=== PATIENT | female | born 1955 | race Caucasian/White ===

== ENCOUNTER → 2017-08-07 15:29 | Outpatient (REF) | payer MEDICARE, SELFPAY ==
[2017-08-07 20:15] LABS: Amphetamine/Metha Screen,Urine Negative ng/mL (<1000); Barbiturates Screen,Urine Negative ng/mL (<200); Benzodiazepines Screen,Urine Negative ng/mL (200); Cannabinoid Screen,Urine Positive ng/mL (<50); Cocaine Screen,Urine Negative ng/g (<300); Methadone Screen,Urine Negative ng/mL (<300); Opiate Screen,Urine Negative ng/mL (<300); Phencyclidine Screen,Urine Negative ng/mL (<25)
== END ==
LOC: LAB 15:29
PROVIDERS: Visit Provider Emergency Medicine
DX: Z79.899 Other long term (current) drug therapy (principal)
CPT/HCPCS: 80305

== ENCOUNTER → 2017-09-04 15:47 | Outpatient (CLI) | payer MEDICARE, SELFPAY | PROVIDERS: Visit Provider Emergency Medicine | DX: Z79.899 Other long term (current) drug therapy (principal) ==

== ENCOUNTER → 2017-10-01 08:17 | Outpatient (REF) | payer MEDICARE, SELFPAY ==
[2017-10-11 05:16] LABS: Alprazolam Negative (Cutoff=100); Benzodiazepines Positive ng/mL (Cutoff=100); Clonazepam Negative (Cutoff=100); Flurazepam Negative (Cutoff=100); Lorazepam Negative (Cutoff=100); Midazolam Negative (Cutoff=100); Temazepam Positive (.); Triazolam Negative (Cutoff=100)
== END ==
LOC: LAB 08:17
PROVIDERS: Visit Provider Emergency Medicine
DX: Z79.899 Other long term (current) drug therapy (principal)
CPT/HCPCS: 80346

== ENCOUNTER → 2017-10-01 15:11 | Outpatient (REF) | payer MEDICARE, SELFPAY ==
[2017-10-01 18:16] LABS: Amphetamine/Metha Screen,Urine Negative ng/mL (<1000); Barbiturates Screen,Urine Negative ng/mL (<200); Benzodiazepines Screen,Urine Positive ng/mL (200); Cannabinoid Screen,Urine Positive ng/mL (<50); Cocaine Screen,Urine Negative ng/g (<300); Methadone Screen,Urine Negative ng/mL (<300); Opiate Screen,Urine Positive ng/mL (<300); Phencyclidine Screen,Urine Negative ng/mL (<25)
== END ==
LOC: LAB 15:11
PROVIDERS: Visit Provider Emergency Medicine
DX: Z79.899 Other long term (current) drug therapy (principal)
CPT/HCPCS: 80305

== ENCOUNTER → 2017-11-04 15:22 | Outpatient (REF) | payer MEDICARE, SELFPAY ==
[2017-11-04 21:53] LABS: Amphetamine/Metha Screen,Urine Negative ng/mL (<1000); Barbiturates Screen,Urine Negative ng/mL (<200); Benzodiazepines Screen,Urine Positive ng/mL (200); Cannabinoid Screen,Urine Positive ng/mL (<50); Cocaine Screen,Urine Negative ng/g (<300); Methadone Screen,Urine Negative ng/mL (<300); Opiate Screen,Urine Positive ng/mL (<300); Phencyclidine Screen,Urine Negative ng/mL (<25)
== END ==
LOC: LAB 15:22
PROVIDERS: Visit Provider Emergency Medicine
DX: Z79.899 Other long term (current) drug therapy (principal)
CPT/HCPCS: 80305

== ENCOUNTER → 2017-12-02 14:57 | Outpatient (REF) | payer MEDICARE, SELFPAY ==
[2017-12-02 17:31] LABS: Amphetamine/Metha Screen,Urine Negative ng/mL (<1000); Barbiturates Screen,Urine Negative ng/mL (<200); Benzodiazepines Screen,Urine Positive ng/mL (<200); Cannabinoid Screen,Urine Positive ng/mL (<50); Cocaine Screen,Urine Negative ng/mL (<300); Methadone Screen,Urine Negative ng/mL (<300); Opiate Screen,Urine Positive ng/mL (<300); Phencyclidine Screen,Urine Negative ng/mL (<25)
== END ==
LOC: LAB 14:57
PROVIDERS: Visit Provider Emergency Medicine
DX: M54.5 Low back pain (principal); Z79.899 Other long term (current) drug therapy
CPT/HCPCS: 80305

== ENCOUNTER → 2017-12-19 09:54 | Outpatient (CLI) | payer MEDICARE, SELFPAY ==
--- NOTE | 2017-12-19 09:57 | XR_ITS ---
XR chest 2V HISTORY: ITS.REASON: shortness of breath ORDERING PHYSICIAN: Edwardo Bach MD PATIENT AGE: 62 years COMPARISON: None available FINDINGS: The cardiomediastinal silhouette and pulmonary vascularity are within normal limits. The lungs are clear without infiltrates, suspicious nodules, or pleural effusions. No acute bony abnormalities. IMPRESSION: Negative chest, no acute finding
[2017-12-19 10:40] VITALS: PULSE 88; PULSE 91
== END ==
PROVIDERS: Family Provider Family Medicine; PCP Emergency Medicine; Visit Provider Emergency Medicine
DX: R06.02 Shortness of breath (principal)
CPT/HCPCS: 71046; 94060; 94640

== ENCOUNTER → 2017-12-23 13:49 | Outpatient (REF) | payer MEDICARE, SELFPAY ==
[2017-12-23 17:39] LABS: Amphetamine/Metha Screen,Urine Negative ng/mL (<1000); Barbiturates Screen,Urine Negative ng/mL (<200); Benzodiazepines Screen,Urine Positive ng/mL (<200); Cannabinoid Screen,Urine Positive ng/mL (<50); Cocaine Screen,Urine Negative ng/mL (<300); Methadone Screen,Urine Negative ng/mL (<300); Opiate Screen,Urine Negative ng/mL (<300); Phencyclidine Screen,Urine Negative ng/mL (<25)
== END ==
LOC: LAB 13:49
PROVIDERS: Visit Provider Emergency Medicine
DX: Z79.899 Other long term (current) drug therapy (principal)
CPT/HCPCS: 80305

== ENCOUNTER → 2018-01-22 13:35 | Outpatient (REF) | payer MEDICARE, SELFPAY ==
[2018-01-22 19:33] LABS: Amphetamine/Metha Screen,Urine Negative ng/mL (<1000); Barbiturates Screen,Urine Negative ng/mL (<200); Benzodiazepines Screen,Urine Positive ng/mL (<200); Cannabinoid Screen,Urine Positive ng/mL (<50); Cocaine Screen,Urine Negative ng/mL (<300); Methadone Screen,Urine Negative ng/mL (<300); Opiate Screen,Urine Positive ng/mL (<300); Phencyclidine Screen,Urine Negative ng/mL (<25)
== END ==
LOC: LAB 13:35
PROVIDERS: Visit Provider Emergency Medicine
DX: Z79.899 Other long term (current) drug therapy (principal)
CPT/HCPCS: 80305

== ENCOUNTER → 2018-02-19 15:39 | Outpatient (REF) | payer MEDICARE, SELFPAY ==
[2018-02-19 18:11] LABS: Amphetamine/Metha Screen,Urine Negative ng/mL (<1000); Barbiturates Screen,Urine Negative ng/mL (<200); Benzodiazepines Screen,Urine Positive ng/mL (<200); Cannabinoid Screen,Urine Positive ng/mL (<50); Cocaine Screen,Urine Negative ng/mL (<300); Methadone Screen,Urine Negative ng/mL (<300); Opiate Screen,Urine Positive ng/mL (<300); Phencyclidine Screen,Urine Negative ng/mL (<25)
== END ==
LOC: LAB 15:39
PROVIDERS: Visit Provider Emergency Medicine
DX: Z79.899 Other long term (current) drug therapy (principal)
CPT/HCPCS: 80305

== ENCOUNTER → 2018-03-18 15:22 | Outpatient (REF) | payer MEDICARE, SELFPAY ==
[2018-03-19 09:57] LABS: Amphetamine/Metha Screen,Urine Negative ng/mL (<1000); Barbiturates Screen,Urine Negative ng/mL (<200); Benzodiazepines Screen,Urine Positive ng/mL (<200); Cannabinoid Screen,Urine Positive ng/mL (<50); Cocaine Screen,Urine Negative ng/mL (<300); Methadone Screen,Urine Negative ng/mL (<300); Opiate Screen,Urine Positive ng/mL (<300); Phencyclidine Screen,Urine Negative ng/mL (<25)
== END ==
LOC: LAB 15:22
PROVIDERS: Visit Provider Emergency Medicine
DX: M54.2 Cervicalgia (principal)
CPT/HCPCS: 80305

== ENCOUNTER → 2018-04-18 17:56 | Outpatient (CLI) | payer MEDICARE, SELFPAY ==
[2018-04-18 19:34] LABS: Amphetamine/Metha Screen,Urine Negative ng/mL (<1000); Barbiturates Screen,Urine Negative ng/mL (<200); Benzodiazepines Screen,Urine Positive ng/mL (<200); Cannabinoid Screen,Urine Positive ng/mL (<50); Cocaine Screen,Urine Negative ng/mL (<300); Methadone Screen,Urine Negative ng/mL (<300); Opiate Screen,Urine Positive ng/mL (<300); Phencyclidine Screen,Urine Negative ng/mL (<25)
== END ==
PROVIDERS: Visit Provider Emergency Medicine
DX: Z79.899 Other long term (current) drug therapy (principal)
CPT/HCPCS: 80305

== ENCOUNTER → 2018-05-19 18:56 | Outpatient (CLI) | payer MEDICARE, SELFPAY ==
[2018-05-19 19:27] LABS: Amphetamine/Metha Screen,Urine Negative ng/mL (<1000); Barbiturates Screen,Urine Negative ng/mL (<200); Benzodiazepines Screen,Urine Positive ng/mL (<200); Cannabinoid Screen,Urine Positive ng/mL (<50); Cocaine Screen,Urine Negative ng/mL (<300); Methadone Screen,Urine Negative ng/mL (<300); Opiate Screen,Urine Negative ng/mL (<300); Phencyclidine Screen,Urine Negative ng/mL (<25)
[2018-05-26 14:12] LABS: Opiates Negative (Cutoff=100); Oxymorphone (GC/MS) 857 ng/mL (Cutoff=100)
== END ==
PROVIDERS: Visit Provider Emergency Medicine
DX: Z79.899 Other long term (current) drug therapy (principal)
CPT/HCPCS: 80305; 80361; 80365; G0480

== ENCOUNTER → 2018-06-18 18:26 | Outpatient (CLI) | payer MEDICARE, SELFPAY ==
[2018-06-18 20:28] LABS: Amphetamine/Metha Screen,Urine Negative ng/mL (<1000); Barbiturates Screen,Urine Negative ng/mL (<200); Benzodiazepines Screen,Urine Positive ng/mL (<200); Cannabinoid Screen,Urine Positive ng/mL (<50); Cocaine Screen,Urine Negative ng/mL (<300); Methadone Screen,Urine Negative ng/mL (<300); Opiate Screen,Urine Positive ng/mL (<300); Phencyclidine Screen,Urine Negative ng/mL (<25)
[2018-06-23 15:15] LABS: Alprazolam Negative (Cutoff=100); Benzodiazepines Positive ng/mL (Cutoff=100); Clonazepam Positive (.); Flurazepam Negative (Cutoff=100); Lorazepam Negative (Cutoff=100); Midazolam Negative (Cutoff=100); Temazepam Positive (.); Triazolam Negative (Cutoff=100)
[2018-06-24 06:40] LABS: Clonazepam Confirm 1401 ng/mL (Cutoff=100)
== END ==
PROVIDERS: Visit Provider Emergency Medicine
DX: Z79.899 Other long term (current) drug therapy (principal)
CPT/HCPCS: 80305; 80346

== ENCOUNTER → 2018-08-13 17:07 | Outpatient (CLI) | payer MEDICARE, SELFPAY ==
[2018-08-13 18:29] LABS: Amphetamine/Metha Screen,Urine Negative ng/mL (<1000); Barbiturates Screen,Urine Negative ng/mL (<200); Benzodiazepines Screen,Urine Positive ng/mL (<200); Cannabinoid Screen,Urine Positive ng/mL (<50); Cocaine Screen,Urine Negative ng/mL (<300); Methadone Screen,Urine Negative ng/mL (<300); Opiate Screen,Urine Positive ng/mL (<300); Phencyclidine Screen,Urine Negative ng/mL (<25)
== END ==
PROVIDERS: Visit Provider Emergency Medicine
DX: M54.2 Cervicalgia (principal)
CPT/HCPCS: 80305

== ENCOUNTER → 2018-10-08 17:27 | Outpatient (CLI) | payer MEDICARE, SELFPAY ==
[2018-10-08 18:47] LABS: Amphetamine/Metha Screen,Urine Negative ng/mL (<1000); Barbiturates Screen,Urine Negative ng/mL (<200); Benzodiazepines Screen,Urine Positive ng/mL (<200); Cannabinoid Screen,Urine Positive ng/mL (<50); Cocaine Screen,Urine Negative ng/mL (<300); Methadone Screen,Urine Negative ng/mL (<300); Opiate Screen,Urine Positive ng/mL (<300); Phencyclidine Screen,Urine Negative ng/mL (<25)
== END ==
PROVIDERS: Visit Provider Emergency Medicine
DX: M54.2 Cervicalgia (principal)
CPT/HCPCS: 80305

== ENCOUNTER → 2018-12-05 17:32 | Outpatient (CLI) | payer MEDICARE, SELFPAY ==
[2018-12-05 19:09] LABS: Basophils # 0.1 K/mm3 (0-0.2); Basophils % 1.3 % (0.1-2.0); Eosinophils # 0.4 K/mm3 (0.0-0.4); Eosinophils % 3.5 % (0.1-12.0); Hematocrit 44.4 % (37.0-47.0); Hemoglobin 13.8 g/dL (12.2-16.2); Lymphocytes # 3.3 K/mm3 (0.7-4.5); Mean Corpuscular HGB Conc 31.1 g/dL (31.8-35.4); Mean Corpuscular Hemoglobin 30.9 pg (27.0-31.2); Mean Corpuscular Volume 99.3 fl (81-99); Mean Platelet Volume 8.9 fl (7.4-10.4); Monocytes # 0.6 K/mm3 (0.1-1.0); Monocytes % 5.5 % (1.7-9.3); Neutrophils % 57.7 % (37.0-80.0); Platelet Count 579 K/mm3 (142-424); Red Blood Count 4.47 M/mm3 (4.20-5.40); Red Cell Distribution Width 13.9 % (11.5-17.5); White Blood Count 10.4 K/mm3 (4.8-10.8)
[2018-12-05 19:36] LABS: Alanine Aminotransferase 18 U/L (12-78); Albumin Level 3.6 gm/dL (3.4-5.0); Albumin/Globulin Ratio 1.1 (1.1-1.8); Alkaline Phosphatase 132 U/L (46-116); Anion Gap 13.7 mEq/L (5-15); Aspartate Amino Transferase 15 U/L (15-37); Bilirubin,Total 0.2 mg/dL (0.2-1.0); Blood Urea Nitrogen 1 mg/dL (7-18); Calcium 9.2 mg/dL (8.5-10.1); Carbon Dioxide 24 mmol/L (21.0-32.0); Chloride 103 mmol/L (98-107); Creatinine,Serum 1.72 mg/dL (0.55-1.02); Estimated Glomerular Filt Rate 30 ml/min (>60); Free T4 (Free Thyroxine) 0.79 ng/dl (0.76-1.46); GFR (African American) 36 ML/MIN (>60); Globulin 3.4 gm/dl (1.3-3.2); Glucose 82 mg/dL (74-106); Potassium 4.7 mmoL/L (3.5-5.1); Sodium 136 mmol/L (136-145)
[2018-12-05 19:49] LABS: Erythrocyte Sedimentation Rate 49 mm/hr (0-30)
[2018-12-05 20:32] LABS: Amphetamine/Metha Screen,Urine Negative ng/mL (<1000); Barbiturates Screen,Urine Negative ng/mL (<200); Benzodiazepines Screen,Urine Positive ng/mL (<200); Cannabinoid Screen,Urine Positive ng/mL (<50); Cocaine Screen,Urine Negative ng/mL (<300); Methadone Screen,Urine Negative ng/mL (<300); Opiate Screen,Urine Negative ng/mL (<300); Phencyclidine Screen,Urine Negative ng/mL (<25)
[2018-12-07 17:10] LABS: Vitamin B12 437 pg/mL (232-1245)
[2018-12-13 13:10] LABS: Oxycodone (GC/MS) 1288 ng/mL (Cutoff=100)
[2018-12-14 22:48] LABS: Opiates Negative (Cutoff=100); Oxymorphone (GC/MS) 555 ng/mL (Cutoff=100)
== END ==
PROVIDERS: Visit Provider Emergency Medicine
DX: M54.2 Cervicalgia (principal); R53.83 Other fatigue; Z79.899 Other long term (current) drug therapy
CPT/HCPCS: 80053; 80305; 80361; 80365; 82607; 84439; 84443; 85025; 85651; G0480

== ENCOUNTER → 2018-12-16 14:35 | Outpatient (CLI) | payer MEDICARE, SELFPAY ==
--- NOTE | 2018-12-16 14:48 | MR_ITS ---
MR head/brain wo con HISTORY: Unsteady gait, off balance, patient leans to the left ITS.REASON: abnormal gait ORDERING PHYSICIAN: Edwardo Bach MD PATIENT AGE: 63 years Comparison: None TECHNIQUE: Standard multiplanar multiecho sequences are performed without contrast. FINDINGS: No midline shift, mass effect, intracranial hemorrhage, or hydrocephalus is evident. The cerebellopontine angles, cerebellum, and brainstem are unremarkable. There is normal norman-white matter differentiation with no significant white matter abnormalities apparent. The pituitary, optic chiasm, corpus callosum, and craniocervical junction have an unremarkable appearance. There is degenerative disc disease in the upper cervical spine at C4-C5. There are small retention cysts in the left maxillary sinus and mild mucosal thickening of the ethmoid sinuses. No mastoid effusion. IMPRESSION: Essentially negative MRI of the brain with no acute intracranial findings
== END ==
PROVIDERS: PCP Emergency Medicine; Visit Provider Emergency Medicine
DX: R26.9 Unspecified abnormalities of gait and mobility (principal)
CPT/HCPCS: 70551

== ENCOUNTER 2018-12-22 13:32 | Outpatient (RCR) | payer MEDICARE, SELFPAY ==
--- NOTE | 2018-12-22 14:46 | HMH.PTOPEV ---
PT Outpatient Evaluation Rehab PT Outpatient Evaluation Start: 12/22/18 14:36 Freq: Status: Active Protocol: Document 12/22/18 14:36 BERYL (Rec: 12/22/18 14:46 DANIELBRITNEY [id number]) Electronically Signed By Pablo Ramirez, SHIRA 12/22/18 14:36 Outpatient Therapy Subjective History Subjective History This is the initial Physical therapy evaluation for Ernestina Silvestre. Pt is a 63 y/o female referred to PT for c/o bad balance . Pt reports she is just clumsy . Pt reprots she has long history of falling due to not picking her feet up . Pt reprots she has fallen ~ 3 times in last 6 months, always forward. Pt does reports she fx'd L ankle severely requiring sx to fix ~ 5 years ago. Chief Complaint Weakness,Other Symptom Type Other Symptoms Relieved By Nothing Symptoms Aggravated By Walking Prior Functional Limitations None Current Functional Limitations Housework,Recreation Activity, Balance Level of pain today (0-10) 0 Pain scale - at its best (0-10) 0 Pain scale - at its worst (0-10) 0 Balance Eval Chief Complaint vertigo No Did you feel dizzy, unsteady or faint? Yes Activity at onset walking Prior Functional Limitations Prior Functional [place] Level full I - but hx of falling/ tripping Hx of Falls Hx Falls Yes Number in last 6 months 3 Gait/Posture Asssessment General Gait Observation Shuffling Step Assistive Devices None / NA Level of Transfer Assist Independent Hip Observation in Gait Swing Internally Rotated,Adducted Hip Observation in Gait Stance Internally Rotated,Adducted Ankle/Foot Observation in Gait Swing No Heel Off,Decreased Foot Clearance Ankle/Foot Observation in Gait Stance Flatfoot Contact,Foot Slap Hip Posture Standing Position (L) Internally Rotated,(L) Adducted Nystagmus Nystagmus Presence None Oculomotor Gaze Oculomotor Gaze Nml: Vergence Smooth Pursuit Saccades VOR Cancellation Cover/Uncover Cross Cover [place] Feet Together/Eyes open/Stable Surface pass Feet Together/Eyes Closed/Stable Jennifer
== END 2018-12-22 13:35 | disposition home or self-care (01) ==
LOC: PT 13:32
PROVIDERS: PCP Emergency Medicine; Visit Provider Emergency Medicine
DX: R26.9 Unspecified abnormalities of gait and mobility (principal)
CPT/HCPCS: 97110; 97163

== ENCOUNTER → 2018-12-22 17:04 | Outpatient (CLI) | payer MEDICARE, SELFPAY ==
[2018-12-24 17:07] LABS: Peripheral Smear Review Scanned Result
[2018-12-25 08:17] LABS: Folate 7.2 ng/mL (>3.0); Vitamin B12 376 pg/mL (232-1245)
== END ==
PROVIDERS: Visit Provider Emergency Medicine
DX: R70.0 Elevated erythrocyte sedimentation rate (principal)
CPT/HCPCS: 82607; 82746; 85060

== ENCOUNTER → 2019-02-04 17:45 | Outpatient (CLI) | payer MEDICARE, SELFPAY ==
[2019-02-04 19:44] LABS: Amphetamine/Metha Screen,Urine Negative ng/mL (<1000); Barbiturates Screen,Urine Negative ng/mL (<200); Benzodiazepines Screen,Urine Positive ng/mL (<200); Cannabinoid Screen,Urine Positive ng/mL (<50); Cocaine Screen,Urine Negative ng/mL (<300); Methadone Screen,Urine Negative ng/mL (<300); Opiate Screen,Urine Positive ng/mL (<300); Phencyclidine Screen,Urine Negative ng/mL (<25)
== END ==
PROVIDERS: Visit Provider Emergency Medicine
DX: M54.2 Cervicalgia (principal)
CPT/HCPCS: 80305

== ENCOUNTER → 2019-04-06 17:15 | Outpatient (CLI) | payer MEDICARE, SELFPAY ==
[2019-04-06 19:46] LABS: Amphetamine/Metha Screen,Urine Negative ng/mL (<1000); Barbiturates Screen,Urine Negative ng/mL (<200); Benzodiazepines Screen,Urine Positive ng/mL (<200); Cannabinoid Screen,Urine Positive ng/mL (<50); Cocaine Screen,Urine Negative ng/mL (<300); Methadone Screen,Urine Negative ng/mL (<300); Opiate Screen,Urine Negative ng/mL (<300); Phencyclidine Screen,Urine Negative ng/mL (<25)
[2019-04-15 10:10] LABS: Alprazolam Negative (Cutoff=100); Benzodiazepines Positive ng/mL (Cutoff=100); Clonazepam Positive (.); Flurazepam Negative (Cutoff=100); Lorazepam Negative (Cutoff=100); Midazolam Negative (Cutoff=100); Oxycodone Positive (.); Oxymorphone Positive (.); Temazepam Negative (Cutoff=100); Triazolam Negative (Cutoff=100)
[2019-04-15 12:18] LABS: Clonazepam Confirm 279 ng/mL (Cutoff=100); Oxycodone Confirm 843 ng/mL (Cutoff=100); Oxymorphone Confirm 1759 ng/mL (Cutoff=100)
== END ==
PROVIDERS: Visit Provider Emergency Medicine
DX: Z79.899 Other long term (current) drug therapy (principal)
CPT/HCPCS: 80305; 80346; 80365

== ENCOUNTER → 2019-05-12 13:00 | Outpatient (CLI) | payer MEDICARE, SELFPAY ==
--- NOTE | 2019-05-12 13:01 | MM_ITS ---
PROCEDURE: MM DIG SCREENING MAMM BI W/CAD CLINICAL INDICATION: screening There is no personal or family history of breast cancer. We have been waiting for outside films from [facility] and they can find no record of previous mammograms, apparently they have been purged. COMPARISON: No exams were available for comparison TECHNIQUE: Standard CC and MLO images were obtained. R2 CAD reviewed. FINDINGS: Prominent diffuse fibroglandular densities are seen throughout both breast and the findings are fairly symmetrical bilaterally. There is no suspicious lesion and no suspicious microcalcifications. IMPRESSION: Moderate diffuse breast density with no suspicious lesions seen BI-RAD Category: 1 Negative FOLLOW-UP: 1YR 1 Year Follow-up (A letter has been sent to the patient regarding results of the study.) Dictated by: Dr. Jeramy Hernández MD 05/21/2019 08:[address] Jeramy Hernández MD in [place] 05/21/2019 08:46
== END ==
PROVIDERS: PCP Emergency Medicine; Visit Provider Emergency Medicine
DX: Z12.31 Encounter for screening mammogram for malignant neoplasm of breast (principal)
CPT/HCPCS: 77067

== ENCOUNTER → 2019-06-08 14:52 | Outpatient (CLI) | payer MEDICARE, SELFPAY ==
[2019-06-08 21:30] LABS: Amphetamine/Metha Screen,Urine Negative ng/mL (<1000); Barbiturates Screen,Urine Negative ng/mL (<200); Benzodiazepines Screen,Urine Positive ng/mL (<200); Cannabinoid Screen,Urine Positive ng/mL (<50); Cocaine Screen,Urine Negative ng/mL (<300); Methadone Screen,Urine Negative ng/mL (<300); Opiate Screen,Urine Negative ng/mL (<300); Phencyclidine Screen,Urine Negative ng/mL (<25)
== END ==
PROVIDERS: Visit Provider Emergency Medicine
DX: M54.2 Cervicalgia (principal)
CPT/HCPCS: 80305

== ENCOUNTER → 2019-07-31 16:52 | Outpatient (CLI) | payer MEDICARE, SELFPAY ==
[2019-07-31 18:44] LABS: Amphetamine/Metha Screen,Urine Negative ng/ml (<1000)
[2019-07-31 18:45] LABS: Barbiturates Screen,Urine Negative ng/ml (<200)
[2019-07-31 18:46] LABS: Benzodiazepines Screen,Urine Negative ng/ml (<200)
[2019-07-31 18:47] LABS: Cannabinoid Screen,Urine Positive ng/ml (<50)
[2019-07-31 18:48] LABS: Cocaine Screen,Urine Negative ng/ml (<300); Methadone Screen,Urine Negative ng/ml (<300)
[2019-07-31 18:49] LABS: Opiate Screen,Urine Negative ng/ml (<300)
[2019-07-31 18:50] LABS: Phencyclidine Screen,Urine Negative ng/ml (<25)
[2019-08-08 06:18] LABS: Oxycodone (GC/MS) 2969 ng/mL (Cutoff=100)
[2019-08-08 20:40] LABS: Opiates Negative (Cutoff=100); Oxymorphone (GC/MS) 1447 ng/mL (Cutoff=100)
== END ==
PROVIDERS: Visit Provider Emergency Medicine
DX: M54.2 Cervicalgia (principal); Z79.899 Other long term (current) drug therapy
CPT/HCPCS: 80305; 80361; 80365; G0480

== ENCOUNTER → 2019-08-13 13:42 | Outpatient (CLI) | payer MEDICARE, SELFPAY ==
--- NOTE | 2019-08-13 13:42 | MR_ITS ---
PROCEDURE: MR CERVICAL SPINE WO CON CLINICAL INDICATION: neck pain Neck pain, bilateral arm pain numbness and tingling right greater than left COMPARISON: [employer] WORKER/O MRI-C-SPINE W/O from 04/17/2017 TECHNIQUE: Standard multiplanar multiecho sequences are performed without contrast. 3-D MIP and myelographic images are also rendered and reviewed FINDINGS: There is normal alignment. The cranial cervical junction has an unremarkable appearance. C2-C3: Unremarkable. C3-C4: Degenerate disc disease with uncovertebral hypertrophy/small disc osteophyte complex on the left causing mild left lateral recess and moderate left-sided foraminal narrowing. C4-C5: Degenerate disc disease with endplate hypertrophic change and bulging disc with bilateral lateral recess and moderate bilateral foraminal narrowing. There is narrowing of the canal at this level at 10 mm. The disc does abut the cord anteriorly without flattening or displacement. C5-C6: Degenerate disc disease with prominent disc osteophyte complex posteriorly and in the right paracentral foraminal area with canal stenosis of 6 mm causing some mild impingement and flattening upon the anterior aspect of the cord and severe narrowing of the right lateral recess and neural foramen. C6-C7: Asymmetric bulging disc eccentric to the left with left lateral recess and foraminal narrowing. C7-T1: Unremarkable. T1-T2: Unremarkable. IMPRESSION: Overall no significant change in the multilevel cervical spondylosis with canal stenosis most severe at C5-C6. Multilevel degenerative disc disease with uncovertebral hypertrophy with bulging disc and disc osteophyte complexes as detailed above. Please see above for detailed description at each level. Overall, the findings are not significantly changed. Dictated by: Pranav Le MD 08/14/2019 11:27 Electronically signed by Pranav Le MD in [place] 08/14/2019 11:27
== END ==
PROVIDERS: PCP Emergency Medicine; Visit Provider Emergency Medicine
DX: M54.2 Cervicalgia (principal)
CPT/HCPCS: 72141; 76376

== ENCOUNTER → 2020-06-02 13:48 | Outpatient (CLI) | payer MEDICARE, SELFPAY ==
--- NOTE | 2020-06-02 13:48 | XR_ITS ---
PROCEDURE: XR DEXA AXIAL SKELETON CLINICAL HISTORY: osteoporosis postmenopausal, smoking history COMPARISON: No exams were available for comparison FINDINGS: The total right hip BMD is 0.644 grams/centimeter with a T-score of -2.4. The right femoral neck is 0.558 g per sq cm with a T-score -2.6 The total left hip BMD is 0.592 grams/centimeter with a T-score of -2.9. The left femoral neck is 0.513 g per sq cm with a T-score -3.0.. The lumbar spine BMD is 0.871 g per sq cm with a T-score of -1.6. IMPRESSION: Osteoporosis values for both hips, osteopenia lumbar spine Based on these results a follow-up exam is recommended in 2 year. Dictated by: Dr. Jeramy Hernández MD 06/02/2020 15:53 Dr. Jeramy Hernández MD in [place] 06/02/2020 15:53
== END ==
PROVIDERS: PCP Emergency Medicine; Visit Provider Emergency Medicine
DX: M81.0 Age-related osteoporosis without current pathological fracture (principal)
CPT/HCPCS: 77080

== ENCOUNTER → 2020-06-13 13:31 | Outpatient (CLI) | payer MEDICARE, SELFPAY ==
--- NOTE | 2020-06-13 13:32 | MM_ITS ---
PROCEDURE: MM DIG SCREENING MAMM BI W/CAD Referring Doctor: Trinity Marcelino Patient Age:64Y CLINICAL INDICATION: breast cancer screening by mammogram 64-year-old; no hormones. No new complaints Family history. Noncontributory/the adopted COMPARISON: MG MM DIG SCREENING MAMM BI W/CAD from 05/12/2019 TECHNIQUE: Standard CC and MLO images were obtained. R2 CAD reviewed. Bilateral digital breast tomosynthesis included. The additional axillary CC views bilaterally. Additional MLO views bilateral. FINDINGS: Outside or are studies have now become available for comparison . Slight heterogeneous moderate density breast Scattered fibroglandular elements. Of mammography slightly decreased sensitivity in regions of the heterogeneous denser tissue. No suspicious calcifications No new dominant or suspicious mass; the prior films helpful Right breast-no new areas of significant concern. Area of minimal asymmetric density at deep medial left breast on actually less evident slight since 2019 Left breast-no new areas of concern. Stable fibroglandular pattern . Bilateral follow-up 1 year recommend and encouraged IMPRESSION: No new findings of concern. Stable mammogram Moderately dense breast Bilateral follow-up 1 year recommended BI-RAD Category: 1 Negative FOLLOW-UP: 1YR 1 Year Follow-up (A letter has been sent to the patient regarding results of the study.) Dictated by: Sean Sun MD 06/15/2020 10:18 Sean Sun MD in [place] 06/15/2020 10:18
== END ==
PROVIDERS: PCP Emergency Medicine; Visit Provider Physician Assistant
DX: Z12.31 Encounter for screening mammogram for malignant neoplasm of breast (principal)
CPT/HCPCS: 77063; 77067

== ENCOUNTER → 2020-07-18 13:35 | Outpatient (CLI) | payer MEDICARE, SELFPAY ==
[2020-07-18 15:02] LABS: Amphetamine/Metha Screen,Urine Negative ng/ml (<1000); Benzodiazepines Screen,Urine Negative ng/ml (<200)
[2020-07-18 15:03] LABS: Barbiturates Screen,Urine Negative ng/ml (<200)
[2020-07-18 15:04] LABS: Cannabinoid Screen,Urine Positive ng/ml (<50); Methadone Screen,Urine Negative ng/ml (<300)
[2020-07-18 15:05] LABS: Cocaine Screen,Urine Negative ng/ml (<300)
[2020-07-18 15:06] LABS: Opiate Screen,Urine Negative ng/ml (<300)
[2020-07-18 15:07] LABS: Phencyclidine Screen,Urine Negative ng/ml (<25)
== END ==
PROVIDERS: Visit Provider Emergency Medicine
DX: M47.22 Other spondylosis with radiculopathy, cervical region (principal); Z79.899 Other long term (current) drug therapy
CPT/HCPCS: 80305

== ENCOUNTER → 2020-08-31 17:36 | Outpatient (CLI) | payer MEDICARE, SELFPAY ==
[2020-08-31 18:13] LABS: Amphetamine/Metha Screen,Urine Negative ng/ml (<1000); Barbiturates Screen,Urine Negative ng/ml (<200)
[2020-08-31 18:14] LABS: Benzodiazepines Screen,Urine Negative ng/ml (<200); Cannabinoid Screen,Urine Positive ng/ml (<50)
[2020-08-31 18:15] LABS: Cocaine Screen,Urine Negative ng/ml (<300)
[2020-08-31 18:16] LABS: Methadone Screen,Urine Negative ng/ml (<300)
[2020-08-31 18:18] LABS: Opiate Screen,Urine Positive ng/ml (<300); Phencyclidine Screen,Urine Negative ng/ml (<25)
== END ==
PROVIDERS: Visit Provider Emergency Medicine
DX: M47.22 Other spondylosis with radiculopathy, cervical region (principal)
CPT/HCPCS: 80305

== ENCOUNTER → 2020-10-25 18:56 | Outpatient (CLI) | payer MEDICARE, SELFPAY ==
[2020-10-25 19:38] LABS: Amphetamine/Metha Screen,Urine Negative ng/ml (<1000)
[2020-10-25 19:39] LABS: Barbiturates Screen,Urine Negative ng/ml (<200)
[2020-10-25 19:40] LABS: Benzodiazepines Screen,Urine Negative ng/ml (<200); Cannabinoid Screen,Urine Positive ng/ml (<50)
[2020-10-25 19:41] LABS: Cocaine Screen,Urine Negative ng/ml (<300); Methadone Screen,Urine Negative ng/ml (<300)
[2020-10-25 19:42] LABS: Opiate Screen,Urine Positive ng/ml (<300)
[2020-10-25 19:43] LABS: Phencyclidine Screen,Urine Negative ng/ml (<25)
== END ==
PROVIDERS: Visit Provider Emergency Medicine
DX: M54.2 Cervicalgia (principal)
CPT/HCPCS: 80305

== ENCOUNTER → 2020-12-21 17:15 | Outpatient (CLI) | payer MEDICARE, SELFPAY ==
[2020-12-22 00:43] LABS: Amphetamine/Metha Screen,Urine Negative ng/ml (<1000); Barbiturates Screen,Urine Negative ng/ml (<200); Benzodiazepines Screen,Urine Negative ng/ml (<200); Cannabinoid Screen,Urine Positive ng/ml (<50); Cocaine Screen,Urine Negative ng/ml (<300); Methadone Screen,Urine Negative ng/ml (<300); Opiate Screen,Urine Positive ng/ml (<300); Phencyclidine Screen,Urine Negative ng/ml (<25)
== END ==
PROVIDERS: Visit Provider Emergency Medicine
DX: M54.12 Radiculopathy, cervical region (principal)
CPT/HCPCS: 80305

== ENCOUNTER → 2021-01-06 15:22 | Outpatient (CLI) | payer MEDICARE, SELFPAY ==
--- NOTE | 2021-01-06 15:22 | CT_ITS ---
PROCEDURE: CT LUNG SCREENING CLINICAL INDICATION: lung cancer screening Current smoker 52.5 pack year smoking history COMPARISON: No exams were available for comparison TECHNIQUE: The exam was performed on a GE Light Speed [address] scanner using 2.90 mGy CTDI. A low dose helical CT CHEST was performed on a multi-detector scanner. All CT scans at the facility use one or more dose reduction, viz: automated exposure control, ma/kV adjustment per patient size (including targeted exams where dose is matched to indication, i.e. head), or iterative reconstruction technique. The LDCT was performed in a facility that meets the criteria for the screening program. Data regarding this exam was submitted to ACR which is an approved registry. The order for this exam indicates that it came as a result of a lung cancer screening counseling shard decision-making visit that included all the elements required of such a visit including smoking cessation. The radiologist interpreting this exam meets the CMS criteria for the LDCT lung cancer screening program. The exam is reported using the Lung-RADS classification scale and reported to the ACR registry. NOTE: This study was performed for the specific purposes of lung cancer screening and is not an alternative to diagnostic chest CT. RADIATION DOSE: CTDI vol(CT dose Index-volume) = 2.90mG DLP (Dose Length Product) = 111.51 mGcm FINDINGS: Centrilobular emphysema with COPD and scattered areas of scarring. Parenchymal opacity noted in the inferior aspect of the lingula laterally and may be due to an area volume loss. In the left mainstem bronchus there is an oval opacity at 1.5 by 0.9 cm along the superior aspect of the left mainstem bronchus. This is best seen on image 40 series 601. There does appear to be a lucency in this region. This could be related to a globule of adherent mucus. Cannot exclude a bronchial lesion. Follow-up chest CT is suggested OTHER FINDINGS: Coronary artery calcifications. Nonobstructing 4 mm stone in the upper pole of the right kidney. IMPRESSION: Lung-RADS Category 4A Suspicious. Left endobronchial lesion in the mainstem bronchus versus a globule of adherent mucus. Follow-up: Chest CT with supine and prone and expiration images suggested with patient too cough exuberantly before the study to try to clear any mucous within the bronchial tree and trachea. Dictated by: Pranav Le MD 01/09/2021 09:38 Pranav Le MD in [place] 01/09/2021 09:38
== END ==
PROVIDERS: PCP Emergency Medicine; Visit Provider Emergency Medicine
DX: Z87.891 Personal history of nicotine dependence (principal); Z12.2 Encounter for screening for malignant neoplasm of respiratory organs
CPT/HCPCS: 71271

== ENCOUNTER → 2021-02-07 13:59 | Outpatient (CLI) | payer MEDICARE, SELFPAY ==
--- NOTE | 2021-02-07 13:59 | CT_ITS ---
PROCEDURE: CT CHEST WO CON CLINICAL INDICATION: abn CT lung screen Follow-up intrabronchial lesion COMPARISON: CT CT LUNG SCREENING from 01/06/2021 TECHNIQUE: Axial images obtained with sagittal and coronal reformats. All CT scans at the facility use one or more dose reduction, viz: automated exposure control, ma/kV adjustment per patient size (including targeted exams where dose is matched to indication, i.e. head), or iterative reconstruction technique. FINDINGS: HEART AND MEDIASTINAL STRUCTURES: Coronary artery calcification. No mediastinal or hilar mass. Minimal pericardial thickening LUNGS AND PLEURAL SPACES: COPD with biapical scarring and centrilobular emphysema. Previously noted soft tissue density within the left mainstem bronchus is no longer apparent consistent with an area mucous which is since been expelled. No suspicious pulmonary nodules evident. BONY STRUCTURES: No acute bony abnormalities apparent. UPPER ABDOMEN: 1.4 cm left adrenal adenoma. ADDITIONAL FINDINGS: No other significant abnormalities. IMPRESSION: Previously noted left mainstem endobronchial density is no longer apparent consistent with an area of mucous which has since then been expelled. No suspicious findings. Suggest return to screening chest CT in January of 2022 Dictated by: Pranav Le MD 02/08/2021 10:05 Pranav Le MD in [place] 02/08/2021 10:05
== END ==
PROVIDERS: PCP Emergency Medicine; Visit Provider Emergency Medicine
DX: J98.09 Other diseases of bronchus, not elsewhere classified (principal); R91.8 Other nonspecific abnormal finding of lung field
CPT/HCPCS: 71250

== ENCOUNTER → 2021-02-15 17:52 | Outpatient (CLI) | payer MEDICARE, SELFPAY ==
[2021-02-15 21:26] LABS: Amphetamine/Metha Screen,Urine Negative ng/ml (<1000)
[2021-02-15 21:27] LABS: Barbiturates Screen,Urine Negative ng/ml (<200); Benzodiazepines Screen,Urine Negative ng/ml (<200)
[2021-02-15 21:28] LABS: Cannabinoid Screen,Urine Positive ng/ml (<50)
[2021-02-15 21:29] LABS: Cocaine Screen,Urine Negative ng/ml (<300); Methadone Screen,Urine Negative ng/ml (<300)
[2021-02-15 21:30] LABS: Opiate Screen,Urine Positive ng/ml (<300)
[2021-02-15 21:31] LABS: Phencyclidine Screen,Urine Negative ng/ml (<25)
== END ==
PROVIDERS: Visit Provider Emergency Medicine
DX: M47.22 Other spondylosis with radiculopathy, cervical region (principal)
CPT/HCPCS: 80305

== ENCOUNTER → 2021-03-10 13:05 | Outpatient (CLI) | payer MEDICARE, SELFPAY ==
[2021-03-10 13:58] LABS: Anion Gap 9.8 mEq/L (5-15); Blood Urea Nitrogen 22 mg/dl (7-17); Calcium 8.8 mg/dl (8.4-10.2); Carbon Dioxide 27 mmol/L (22.0-30.0); Chloride 102 mmol/L (98-107); Estimated Glomerular Filt Rate 38 ml/min (>60); GFR (African American) 46 ML/MIN (>60); Glucose 96 mg/dl (74-100); Potassium 3.8 mmoL/L (3.5-5.1); Sodium 135 mmol/L (136-145)
[2021-03-10 14:07] LABS: NT Pro Brain Natriuretic Pep. 852 pg/mL (0-125)
== END ==
PROVIDERS: Visit Provider Internal Medicine Cardiovascular Disease
DX: I25.10 Atherosclerotic heart disease of native coronary artery without angina pectoris (principal); R06.00 Dyspnea, unspecified; R06.02 Shortness of breath; R94.31 Abnormal electrocardiogram [ECG] [EKG]
CPT/HCPCS: 36415; 80048; 83880

== ENCOUNTER → 2021-04-03 11:33 | Outpatient (CLI) | payer MEDICARE, SELFPAY ==
--- NOTE | 2021-04-03 | CA_ITS ---
APPROVED REPORT Exam: Pharmacologic Technologist: Lilia Negro Ht: 5 ft 7 in Wt: 154 lbs BSA: 1.81 m2 HR: 77 bpm BP: 162/98 mmHg Indications: SOA, ABN EKG Medical History Medications: Asa,,,,, Gabapentin,,,,, Losartan,,,,, Atorvastatin,,,,, Carvedilol,,,,, PERCOCET,,,,, Calcium,,,,, Vit D3,,,,, ProMETHAZINE,,,,, Diclofenac,,,,, Tizanidine,,,,, Venlafaxine,,,,, Stress Test Details Test: LEXISCAN HR Resting HR: 80 bpm Max Heart Rate (APMHR): 155 bpm Max HR Achieved: 96 bpm Target HR (85% APMHR): 131 bpm % of APMHR: 61 Recovery HR: 92 bpm BP Resting BP: 162.0/98.0 mmHg Max BP: 162.0/98.0 mmHg Recovery BP: 148.0/90.0 mmHg ECG Clinical Exercise duration: 04:00 min Highest Stage Achieved: Exercise capacity: 1.0 METs Stress ECG Conclusion Symptoms: Nausea with Lexiscan infusion. No chest pain. No shortness of air. Arrhythmias/Ectopy: PVCs noted ST-T Changes: < 1.[address] segment changes. Electronically signed by : Walt Ferreira MD 04/04/2021 06:55:20
--- NOTE | 2021-04-03 11:33 | NM_ITS ---
APPROVED REPORT Exam: Nuclear Stress Test Indication: HTN, HYPERLIPIDEMIA, TOB USE, SOB, ABN EKG Patient Location: Outpatient Stress Tech: Lilia Negro [place] Tech:Smita Gallo, ARRT, RT (R)(N) Ht: 5 ft 7 in Wt: 154 lbs Bra Size: 36D HR: 80 bpm BP: 162/96 mmHg BSA: 1.81 m2 BMI: 24.1 History: HTN, HYPERLIPIDEMIA, TOB USE, SOB, ABN EKG Procedure: Patient received a 0.4 mg of intravenous Lexiscan, resting heart rate 80 bpm, resting blood pressure 162/96 mmHg, with Lexiscan maximum heart rate achived was 93 bpm which is Less than 85 % of the With Lexiscan, patient denied any complaint of chest pain. Electrocardiogram Resting electrocardiogram showed sinus rhythm left bundle branch block, with Lexiscan there is less than 1.[address] segment depression noted from the baseline EKG. The EKG portion of the Lexiscan is nondiagnostic due to baseline abnormal EKG. Cardiac Stress and Resting SPECT Images: Cardiac Stress and Resting SPECT images were obtained using technetium 99m Myoview 29.6 mCi stress and 9.79 mCi at rest. Gated SPECT for analysis of segmental wall motion and calculation of the ejection fraction also done. Cardiac stress and resting SPECT images show reversible ischemia involving the apex and anteroseptal wall, computer derived ejection fraction is 53% with abnormal septal motion, right ventricle is normal size and contractility. Conclusion: 1. The EKG portion of the Lexiscan Myoview was nondiagnostic due to baseline abnormal EKG. 2. Scintigraphic evidence of reversible ischemia involving the apex and anteroseptal wall, computer derived ejection fraction is 53% with abnormal septal motion, right ventricle is normal size and contractility. 3. Abnormal Lexiscan Myoview study. Electronically signed by : Walt Ferreira MD 04/04/2021 07:04:35
--- NOTE | 2021-04-03 13:05 | CA_ITS ---
APPROVED REPORT EXAM: Comprehensive 2D, Doppler, and color-flow Echocardiogram [facility] Internship: Allison Mulligan CRT Ht: 5 ft 7 in Wt: 154lbs BSA: 1.81 BP: 133/80 mmHg Indications: Abnormal ECG, Shortness of Breath, abn ct calcium 2D Dimensions LVOT 1.53 cm (M/F) 1.5-2.5 LA Volume 38.70 mL LA Volume Index 21.40 mL/m2 (M/F) 16-34 M-Mode Dimensions RVDd 2.90 cm (0.9-2.6) LA Diam 2.63 cm (1.9-4.0) LVDd 2.54 cm (3.5-5.7) Ao Diam 2.98 cm (2.0-3.7) LVDs 1.79 cm (3.5-5.7) IVSd 2.83 cm (0.6-1.1) PWd 0.68 cm (0.6-1.1) EF (Teich) 58.60% FS 29.50% EDV (Teich) 23.20 mL TAPSE 2.10 (<1.7) ESV (Teich) 9.60 mL LV Diastology E Decel Time 150.00 (160-240 msec) E/A Ratio 0.59 MED E' 7.10 (< 7 cm/sec) MED A' 12.20 cm/s E'/MED E' Ratio 9.31 (>14) LAT E' 7.50 (<10 cm/sec) LAT A' 14.80 cm/s E/LAT E' Ratio 8.81 (>14) Aortic Valve AO Peak GR. 8.90 mmHg Mitral Valve MV E Max Mundo. 66.00 (40-130 cm/s) MV A Velocity 112.00 (40-130 cm/s) E/A Ratio 0.59 MV Decel. Time 150.00 (160-240 ms) MV PHT 44.00 ms Tricuspid Valve TR P. Velocity 287.00 cm/s RAP Estimate 10.00 mmHg RVSP 43.00 mmHg Left Ventricle Left atrium is mildly enlarged, left ventricle is normal size, mild concentric left ventricular hypertrophy, visually estimated ejection fraction 55% with no regional wall motion abnormality, grade 1 diastolic dysfunction seen without tissue Doppler evidence of raise left atrial pressure. Right Ventricle Right atrium and right ventricle are normal size and contractility. Aortic Valve Aortic valve is minimally thickened and fibrosed, there is no aortic stenosis or aortic insufficiency. Mitral Valve Mitral valve grossly normal, there is trace mitral regurgitation. Tricuspid Valve Tricuspid grossly normal, there is trace tricuspid regurgitation, tricuspid regurgitation jet velocity is inadequate for calculation of the right ventricular systolic pressure. Pulmonic Valve Pulmonic valve is poorly visualized. Great Vessels Aortic root is normal size. Inferior vena cava is normal size with normal inspiratory collapse. Pericardium No significant pericardial effusion noted. Conclusion 1. Left atrium is mildly enlarged, left ventricle is normal size, mild concentric left ventricular hypertrophy, visually estimated ejection fraction 55% with no regional wall motion abnormality, grade 1 diastolic dysfunction seen without tissue Doppler evidence of raise left atrial pressure. 2. Trace mitral and tricuspid regurgitation. 3. No significant pericardial effusion noted. 4. Inferior vena cava is normal size with normal inspiratory collapse. Electronically signed by : Walt Ferreira MD 04/03/2021 20:26:58
--- NOTE | 2021-04-03 13:39 | HMH.ITSHM ---
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 []VENLAFAXINE TIZANIDINE QUETIAPINE PROMETHAZINE OXYCODONE LOSARTAN GABAPENTIN VITAMIN D2 DICLOFENAC VITAMIN D3 CARVEDILOL ATORVASTATIN CALCIUM ASA ALENDRONATE
== END ==
PROVIDERS: PCP Emergency Medicine; Visit Provider Internal Medicine Cardiovascular Disease
DX: I25.10 Atherosclerotic heart disease of native coronary artery without angina pectoris (principal); R06.00 Dyspnea, unspecified; R94.31 Abnormal electrocardiogram [ECG] [EKG]
CPT/HCPCS: 78452; 93017; 93306; A9502; J2785

== ENCOUNTER → 2021-04-11 19:02 | Outpatient (CLI) | payer MEDICARE, SELFPAY ==
[2021-04-11 19:49] LABS: Phencyclidine Screen,Urine Negative ng/ml (<25)
[2021-04-11 19:55] LABS: Amphetamine/Metha Screen,Urine Negative ng/ml (<1000)
[2021-04-11 19:56] LABS: Barbiturates Screen,Urine Negative ng/ml (<200)
[2021-04-11 19:57] LABS: Benzodiazepines Screen,Urine Negative ng/ml (<200); Cannabinoid Screen,Urine Positive ng/ml (<50)
[2021-04-11 20:01] LABS: Cocaine Screen,Urine Negative ng/ml (<300); Methadone Screen,Urine Negative ng/ml (<300)
[2021-04-11 20:02] LABS: Opiate Screen,Urine Positive ng/ml (<300)
== END ==
PROVIDERS: Visit Provider Emergency Medicine
DX: M47.22 Other spondylosis with radiculopathy, cervical region (principal)
CPT/HCPCS: 80305

== ENCOUNTER 2021-05-17 08:58 | Day surgery (SDC) | payer MEDICARE, SELFPAY ==
[2021-05-17] VITALS (14 sets, daily range): BP systolic 110–170; BP diastolic 72–104; PULSE 70–88; RESP 17–18; TEMP 36.8; O2SAT 95–100; BMI 23.8
--- NOTE | 2021-05-17 | IR_ITS ---
APPROVED REPORT Patient Location: Outpatient Social And Political Studies Professor: DANN Robles RT (R) PROCEDURES Left heart catheterization Left ventriculogram Selective coronary angiogram Drug-eluting stent deployment to the mid dominant right coronary artery Drug-eluting stent deployment to the proximal LAD INDICATION Coronary artery disease, Angina pectoris, High risk abnormal Myoview Informed consent was obtained prior to the procedure. COMPLICATIONS None Estimated Blood Loss: Less than 10 mls TECHNIQUE One percent lidocaine used to anesthetize the right anterior aspect of the wrist. The right radial artery was accessed via the Seldinger technique. A 6 [place] sheath was placed in the right radial artery. 2.5 mg of verapamil, 800 mcg of nitroglycerin, 1mg Lidocaine and 5000 U Heparin were given through the arterial sheath. The [employer] 1 catheter was also used to perform left heart catheterization, left ventriculogram and selective coronary angiogram. At the end the diagnostic angiogram therapeutic heparin was administered giving a therapeutic ACT and the guide catheter was placed in the right coronary artery where a Choice PT extra-support wire was placed distally. A 3 mm x 38 mm resolute [place] stent was deployed at 24 dave reducing the severe stenosis to 0%. Wire bias was present following the procedure accompanied by some catheter induced spasm therefore 800 mcg of intracoronary nitroglycerin was administered. Post stent angiography demonstrated wide patency of the right coronary artery with LIVIER-3 flow being present before and after the procedure. Following this the guide catheter was placed in the left main artery where the same wire was placed into the LAD and a 3.5 x 18 mm resolute Derry stent was deployed at 16 dave reducing the stenosis to 0%. LIVIER-3 flow was present before and after the procedure. At the end of the procedure the apparatus was moved the sheath was removed and hemostasis was achieved using TR banding patient was transferred to the postop holding area in stable condition ANGIOGRAPHIC RESULTS The left main artery Normal The left anterior descending artery Has a proximal concentric 70 to 80% stenosis followed by an unusual trifurcating vessel giving rise to the moderate-sized first diagonal artery septal guest relations officer and then LAD proper. The remaining vessels distal to the proximal LAD is widely patent The circumflex artery Nondominant normal The right coronary artery Large dominant with mid vessel 70% concentric stenosis followed by an additional 40% eccentric stenosis The LAURENT ventriculogram reveals Normal 65% The left ventricular end-diastolic pressure 22 mmHg IMPRESSION Severe two-vessel coronary disease as described above Successful stenting of the mid dominant right coronary severe disease reduced to 0% with 1 drug-eluting stent Successful stenting of the proximal LAD severe disease reduced to 0% with 1 drug-eluting stent Normal ejection fraction Elevated LVEDP PLAN 1. Dual antiplatelet therapy 2. Risk factor modification 3. Cardiac rehabilitation 4. Avoidance of tobacco products 5. LDL less than 55 6. Treatment of diastolic dysfunction Electronically signed by : Lamont Rioc MD 05/17/2021 11:47:36
[2021-05-17 09:49] LABS: Chloride 103 mmol/L (98-107); Potassium 3.7 mmoL/L (3.5-5.1); Sodium 139 mmol/L (136-145)
[2021-05-17 09:52] LABS: Anion Gap 10.7 mEq/L (5-15); Blood Urea Nitrogen 17 mg/dl (7-17); Carbon Dioxide 29 mmol/L (22.0-30.0); Creatinine Clearance Estimated 61 mL/min (50-200); Estimated Glomerular Filt Rate 56 ml/min (>60); GFR (African American) 67 ML/MIN (>60)
[2021-05-17 09:53] LABS: Calcium 9.5 mg/dl (8.4-10.2); Glucose 76 mg/dl (74-100)
[2021-05-17 11:16] LABS: MANUAL DIFFERENTIAL MANUAL DIFFERENTIAL (MANUAL DIFF)
[2021-05-17 11:59] LABS: Basophils # 0.2 K/mm3 (0-0.2); Basophils % 1.8 % (0.1-2.0); Eosinophils # 0.2 K/mm3 (0.0-0.4); Hemoglobin 13.5 g/dL (12.2-16.2); Lymphocytes # 3.2 K/mm3 (0.7-4.5); Lymphocytes % 37.2 % (10-50); Mean Corpuscular HGB Conc 32.8 g/dL (31.8-35.4); Mean Corpuscular Hemoglobin 31.8 pg (27.0-31.2); Mean Platelet Volume 8.3 fl (7.4-10.4); Monocytes # 0.5 K/mm3 (0.1-1.0); Monocytes % 5.9 % (1.7-9.3); Neutrophils # 4.6 K/mm3 (1.8-7.8); Neutrophils % 53.2 % (37.0-80.0); Platelet Count 474 K/mm3 (142-424); Red Blood Count 4.23 M/mm3 (4.20-5.40); Red Cell Distribution Width 14.5 % (11.5-17.5); White Blood Count 8.7 K/mm3 (4.8-10.8)
[2021-05-17 12:10] LABS: Eosinophils % 3 % (0-3); Lymphocytes % 38 % (10-50); Monocytes % 5 % (2-9); Neutrophils % 54 % (42-76); Total Cells Counted 100
[2021-05-17 12:11] LABS: Platelet Estimate Normal; RBC Morphology Normal
[2021-05-17 14:19] LABS: CATHL Activated Clotting Time 324 SEC (74-125)
--- NOTE | 2021-05-17 15:34 | HMH.PHACLD ---
Ernestina Silvestre has received discharge medication counseling on the following medications: ASPIRIN BRILINTA ATORVASTATIN LOSARTAN/HCTZ CARVEDILOL BRILINTA ONLY NEW MEDICATION, BROUGHT UP BY CLINIC PHARMACY. PATIENT IS TO CONTINUE ALL OTHER HOME MEDICATIONS. PATIENT AND PATIENT'S HAD NO QUESTIONS OR CONCERNS AT THIS TIME. -MERA HUYNH, SHYANNED
== END 2021-05-17 15:28 | disposition home or self-care (01) ==
LOC: CATHLAB 09:02
PROVIDERS: PCP Emergency Medicine; Visit Provider Internal Medicine
DX: I25.118 Atherosclerotic heart disease of native coronary artery with other forms of angina pectoris (principal); Z79.899 Other long term (current) drug therapy; I10 Essential (primary) hypertension; F17.210 Nicotine dependence, cigarettes, uncomplicated
CPT/HCPCS: 80048; 85007; 85014; 85018; 85048; 85049; 85347; 92928; 93458; 99152; 99153; C1725; C1769; C1874; C1876; C9600; J1644; Q9967

== ENCOUNTER → 2021-06-09 12:14 | Outpatient (CLI) | payer MEDICARE, SELFPAY ==
--- NOTE | 2021-06-09 12:21 | XR_ITS ---
FINAL REPORT CLINICAL HISTORY: SOA FINDINGS: PA and lateral views of the chest are obtained. There is no prior exam for comparison. The heart size is normal. There is increased density along the upper mediastinum of uncertain etiology. There is left basilar opacity and a small left pleural effusion favoring pneumonia. There is no pneumothorax. There is no acute osseous abnormality. IMPRESSION: Left base opacity and small left pleural effusion favoring pneumonia. Increased density along the upper mediastinum of uncertain etiology. Consider Chest CT. Reviewed, Interpreted and Dictated by Asia Otero MD Transcribed by Artur Barrientos Authenticated by Asia Otero MD on 06/09/2021 01:42:39 PM [facility]
[2021-06-09 14:09] LABS: Anion Gap 12.9 mEq/L (5-15); Blood Urea Nitrogen 27 mg/dl (7-17); Calcium 9.4 mg/dl (8.4-10.2); Carbon Dioxide 25 mmol/L (22.0-30.0); Chloride 101 mmol/L (98-107); Estimated Glomerular Filt Rate 30 ml/min (>60); GFR (African American) 36 ML/MIN (>60); Glucose 92 mg/dl (74-100); Potassium 3.9 mmoL/L (3.5-5.1); Sodium 135 mmol/L (136-145)
== END ==
PROVIDERS: Urology; PCP Emergency Medicine; Visit Provider Physician Assistant
DX: R06.02 Shortness of breath (principal); E78.5 Hyperlipidemia, unspecified; I10 Essential (primary) hypertension; I25.10 Atherosclerotic heart disease of native coronary artery without angina pectoris; R06.00 Dyspnea, unspecified; Z72.0 Tobacco use
CPT/HCPCS: 36415; 71046; 80048

== ENCOUNTER → 2021-06-09 17:21 | Outpatient (CLI) | payer MEDICARE, SELFPAY ==
[2021-06-09 18:59] LABS: Barbiturates Screen,Urine Negative ng/ml (<200)
[2021-06-09 19:00] LABS: Benzodiazepines Screen,Urine Negative ng/ml (<200)
[2021-06-09 19:01] LABS: Cannabinoid Screen,Urine Positive ng/ml (<50); Cocaine Screen,Urine Negative ng/ml (<300)
[2021-06-09 19:02] LABS: Methadone Screen,Urine Negative ng/ml (<300)
[2021-06-09 19:03] LABS: Opiate Screen,Urine Negative ng/ml (<300); Phencyclidine Screen,Urine Negative ng/ml (<25)
[2021-06-09 19:16] LABS: Amphetamine/Metha Screen,Urine Negative ng/ml (<1000)
== END ==
PROVIDERS: Visit Provider Emergency Medicine
DX: M47.22 Other spondylosis with radiculopathy, cervical region (principal)
CPT/HCPCS: 36415; 71046; 80048; 80305

== ENCOUNTER → 2021-08-30 15:20 | Outpatient (CLI) | payer MEDICARE, SELFPAY ==
--- NOTE | 2021-08-30 15:25 | XR_ITS ---
FINAL REPORT CLINICAL HISTORY: back pain FINDINGS: LUMBAR SPINE SERIES Five views demonstrate no fracture. Moderate degenerative changes are present. There is mild anterolisthesis of L4 on 5. Facet arthropathy seen in the lower lumbar spine. There is rightward curvature. Note is made of vascular calcification. IMPRESSION: Degenerative chronic appearing findings. Reviewed, Interpreted and Dictated by Tre Cervantes III, MD Transcribed by Dinora Pritchett Authenticated by Tre Cervantes III, MD on 08/30/2021 04:48:11 PM [facility]
--- NOTE | 2021-08-30 15:25 | XR_ITS ---
FINAL REPORT CLINICAL HISTORY: left hip pain FINDINGS: LEFT HIP Three views demonstrate no acute fracture or dislocation. There are mild degenerative changes of both hips. No soft tissue abnormality is seen. IMPRESSION: Mild degenerative changes. Reviewed, Interpreted and Dictated by Tre Cervantes III, MD Transcribed by Dinora Pritchett Authenticated by Tre Cervantes III, MD on 08/30/2021 04:48:15 PM [facility]
--- NOTE | 2021-08-30 15:25 | XR_ITS ---
FINAL REPORT CLINICAL HISTORY: leg pain FINDINGS: LEFT FEMUR Two views demonstrate no acute fracture or dislocation. There are mild degenerative changes of the hip and knee. No soft tissue abnormality is seen. IMPRESSION: Degenerative changes as above. Reviewed, Interpreted and Dictated by Tre Cervantes III, MD Transcribed by Dinora Pritchett Authenticated by Tre Cervantes III, MD on 08/30/2021 04:48:22 PM [facility]
== END ==
PROVIDERS: PCP Emergency Medicine; Visit Provider Emergency Medicine
DX: M54.50 Low back pain, unspecified (principal); M79.605 Pain in left leg; M25.552 Pain in left hip
CPT/HCPCS: 72110; 73502; 73552

== ENCOUNTER → 2022-03-20 12:44 | Outpatient (CLI) | payer MEDICARE, SELFPAY ==
[2022-03-20 22:09] LABS: Amphetamine/Metha Screen,Urine Negative ng/ml (<1000)
[2022-03-20 22:10] LABS: Barbiturates Screen,Urine Negative ng/ml (<200); Benzodiazepines Screen,Urine Negative ng/ml (<200)
[2022-03-20 22:11] LABS: Cannabinoid Screen,Urine Positive ng/ml (<50)
[2022-03-20 22:12] LABS: Cocaine Screen,Urine Negative ng/ml (<300)
[2022-03-20 22:13] LABS: Methadone Screen,Urine Negative ng/ml (<300)
[2022-03-20 22:14] LABS: Opiate Screen,Urine Negative ng/ml (<300); Phencyclidine Screen,Urine Negative ng/ml (<25)
== END ==
PROVIDERS: PCP Emergency Medicine; Visit Provider Emergency Medicine
DX: M54.2 Cervicalgia (principal)
CPT/HCPCS: 80305

== ENCOUNTER → 2022-05-14 21:33 | Outpatient (CLI) | payer MEDICARE, SELFPAY ==
[2022-05-14 19:49] LABS: Amphetamine/Metha Screen,Urine Negative ng/ml (<1000)
[2022-05-14 19:50] LABS: Barbiturates Screen,Urine Negative ng/ml (<200)
[2022-05-14 19:51] LABS: Benzodiazepines Screen,Urine Positive ng/ml (<200); Cannabinoid Screen,Urine Positive ng/ml (<50)
[2022-05-14 19:52] LABS: Cocaine Screen,Urine Negative ng/ml (<300); Methadone Screen,Urine Negative ng/ml (<300)
[2022-05-14 19:53] LABS: Opiate Screen,Urine Positive ng/ml (<300)
[2022-05-14 19:54] LABS: Phencyclidine Screen,Urine Negative ng/ml (<25)
== END ==
PROVIDERS: Visit Provider Emergency Medicine
DX: M54.2 Cervicalgia (principal)
CPT/HCPCS: 80305

== ENCOUNTER → 2022-07-10 23:00 | Outpatient (CLI) | payer MEDICARE, SELFPAY ==
[2022-07-11 17:39] LABS: Amphetamine/Metha Screen,Urine Negative ng/ml (<1000); Barbiturates Screen,Urine Negative ng/ml (<200); Phencyclidine Screen,Urine Negative ng/ml (<25)
[2022-07-11 17:52] LABS: Benzodiazepines Screen,Urine Positive ng/ml (<200); Cannabinoid Screen,Urine Positive ng/ml (<50); Cocaine Screen,Urine Negative ng/ml (<300); Methadone Screen,Urine Negative ng/ml (<300); Opiate Screen,Urine Positive ng/ml (<300)
== END ==
PROVIDERS: PCP Emergency Medicine; Visit Provider Emergency Medicine
DX: M54.2 Cervicalgia (principal)
CPT/HCPCS: 80305

== ENCOUNTER → 2022-09-04 23:19 | Outpatient (CLI) | payer MEDICARE, SELFPAY ==
[2022-09-04 18:00] LABS: Basophils # 0.2 K/mm3 (0-0.2); Basophils % 1.6 % (0.1-2.0); Eosinophils # 0.2 K/mm3 (0.0-0.4); Eosinophils % 1.7 % (0.1-12.0); Hematocrit 40.1 % (37.0-47.0); Hemoglobin 12.4 g/dL (12.2-16.2); Lymphocytes # 3.9 K/mm3 (0.7-4.5); Lymphocytes % 33.3 % (10-50); Mean Corpuscular HGB Conc 30.9 g/dL (31.8-35.4); Mean Corpuscular Hemoglobin 31.7 pg (27.0-31.2); Mean Corpuscular Volume 102.3 fl (81-99); Mean Platelet Volume 7.9 fl (7.4-10.4); Monocytes # 0.6 K/mm3 (0.1-1.0); Monocytes % 5.1 % (1.7-9.3); Neutrophils # 6.8 K/mm3 (1.8-7.8); Neutrophils % 58.4 % (37.0-80.0); Platelet Count 573 K/mm3 (142-424); Red Blood Count 3.92 M/mm3 (4.20-5.40); Red Cell Distribution Width 13.5 % (11.5-17.5); White Blood Count 11.7 K/mm3 (4.8-10.8)
[2022-09-04 18:35] LABS: Alanine Aminotransferase 13 U/L (12-78); Albumin Level 4.3 g/dl (3.5-5.0); Albumin/Globulin Ratio 1.7 (1.1-1.8); Alkaline Phosphatase 105 U/L (38-126); Anion Gap 13.3 mEq/L (5-15); Aspartate Amino Transferase 23 U/L (14-36); Bilirubin,Total 0.3 mg/dl (0.2-1.3); Blood Urea Nitrogen 30 mg/dl (7-17); Carbon Dioxide 23 mmol/L (22.0-30.0); Chloride 104 mmol/L (98-107); Chol/HDL Ratio 2.6 (1-3.5); Cholesterol 189 mg/dl (140-200); Estimated Glomerular Filt Rate 28 ml/min (>60); GFR (African American) 34 ML/MIN (>60); Globulin 2.5 g/dL (1.3-3.2); Glucose 109 mg/dl (74-100); HDL Cholesterol 73 mg/dl (40-60); Potassium 4.3 mmoL/L (3.5-5.1); Sodium 136 mmol/L (136-145); Total Protein,Serum 6.8 g/dl (6.3-8.2); Triglycerides 138 mg/dl (30-150); VLDL Cholesterol 28 mg/dL (0-40)
[2022-09-04 18:45] LABS: Amphetamine/Metha Screen,Urine Negative ng/ml (<1000); Barbiturates Screen,Urine Negative ng/ml (<200)
[2022-09-04 18:46] LABS: Benzodiazepines Screen,Urine Negative ng/ml (<200)
[2022-09-04 18:47] LABS: Cannabinoid Screen,Urine Positive ng/ml (<50); Cocaine Screen,Urine Negative ng/ml (<300)
[2022-09-04 18:48] LABS: Direct LDL Cholesterol 73.89 mg/dL (100-129)
[2022-09-04 18:48] LABS: Methadone Screen,Urine Negative ng/ml (<300)
[2022-09-04 18:49] LABS: Opiate Screen,Urine Positive ng/ml (<300)
[2022-09-04 18:50] LABS: Phencyclidine Screen,Urine Negative ng/ml (<25)
[2022-09-04 18:58] LABS: T4 (Thyroxine) 6.7 ug/dl (5.53-11.0)
[2022-09-04 19:11] LABS: Thyroid Stimulating Hormone 3.12 uIU/mL (0.465-4.68)
== END ==
PROVIDERS: PCP Emergency Medicine; Visit Provider Emergency Medicine
DX: M54.2 Cervicalgia (principal); I10 Essential (primary) hypertension; I25.10 Atherosclerotic heart disease of native coronary artery without angina pectoris
CPT/HCPCS: 80053; 80061; 80305; 84436; 84443; 85025

== ENCOUNTER → 2022-09-17 11:55 | Outpatient (CLI) | payer MEDICARE, SELFPAY ==
[2022-09-17 15:30] LABS: Chloride 104 mmol/L (98-107); Potassium 3.9 mmoL/L (3.5-5.1); Sodium 140 mmol/L (136-145)
[2022-09-17 15:33] LABS: Anion Gap 14.9 mEq/L (5-15); Blood Urea Nitrogen 24 mg/dl (7-17); Calcium 9.7 mg/dl (8.4-10.2); Carbon Dioxide 25 mmol/L (22.0-30.0); Estimated Glomerular Filt Rate 63 ml/min (>60); GFR (African American) 76 ML/MIN (>60); Glucose 143 mg/dl (74-100)
== END ==
PROVIDERS: PCP Emergency Medicine; Visit Provider Emergency Medicine
DX: I10 Essential (primary) hypertension (principal)
CPT/HCPCS: 80048

== ENCOUNTER → 2022-12-26 23:39 | Outpatient (CLI) | payer MEDICARE, SELFPAY ==
[2022-12-26 20:48] LABS: Barbiturates Screen,Urine Negative ng/ml (<200); Benzodiazepines Screen,Urine Negative ng/ml (<200)
[2022-12-26 20:49] LABS: Amphetamine/Metha Screen,Urine Negative ng/ml (<1000)
[2022-12-26 20:50] LABS: Cannabinoid Screen,Urine Positive ng/ml (<50); Cocaine Screen,Urine Negative ng/ml (<300)
[2022-12-26 20:51] LABS: Methadone Screen,Urine Negative ng/ml (<300)
[2022-12-26 20:52] LABS: Opiate Screen,Urine Positive ng/ml (<300); Phencyclidine Screen,Urine Negative ng/ml (<25)
== END ==
PROVIDERS: PCP Emergency Medicine; Visit Provider Emergency Medicine
DX: M54.2 Cervicalgia (principal)
CPT/HCPCS: 80305

== ENCOUNTER → 2023-02-20 11:00 | Outpatient (CLI) | payer MEDICARE, SELFPAY ==
[2023-02-20 21:49] LABS: Amphetamine/Metha Screen,Urine Negative ng/ml (<1000)
[2023-02-20 21:50] LABS: Barbiturates Screen,Urine Negative ng/ml (<200); Benzodiazepines Screen,Urine Positive ng/ml (<200)
[2023-02-20 21:51] LABS: Cannabinoid Screen,Urine Positive ng/ml (<50)
[2023-02-20 21:52] LABS: Cocaine Screen,Urine Negative ng/ml (<300)
[2023-02-21 00:23] LABS: Methadone Screen,Urine Negative ng/ml (<300)
[2023-02-21 00:24] LABS: Opiate Screen,Urine Negative ng/ml (<300); Phencyclidine Screen,Urine Negative ng/ml (<25)
== END ==
PROVIDERS: PCP Emergency Medicine; Visit Provider Emergency Medicine
DX: M54.2 Cervicalgia (principal); Z79.899 Other long term (current) drug therapy
CPT/HCPCS: 80305

== ENCOUNTER → 2023-04-19 12:00 | Outpatient (CLI) | payer MEDICARE, SELFPAY ==
[2023-04-19 21:07] LABS: Amphetamine/Metha Screen,Urine Negative ng/ml (<1000)
[2023-04-19 21:08] LABS: Barbiturates Screen,Urine Negative ng/ml (<200); Benzodiazepines Screen,Urine Negative ng/ml (<200)
[2023-04-19 21:09] LABS: Cannabinoid Screen,Urine Positive ng/ml (<50); Cocaine Screen,Urine Negative ng/ml (<300)
[2023-04-19 21:10] LABS: Methadone Screen,Urine Negative ng/ml (<300)
[2023-04-19 21:11] LABS: Opiate Screen,Urine Positive ng/ml (<300); Phencyclidine Screen,Urine Negative ng/ml (<25)
== END ==
PROVIDERS: PCP Emergency Medicine; Visit Provider Emergency Medicine
DX: M51.16 Intervertebral disc disorders with radiculopathy, lumbar region (principal)
CPT/HCPCS: 80305

== ENCOUNTER 2023-06-27 22:24 | Outpatient (CLI) | payer MEDICARE, SELFPAY ==
[2023-06-27 18:58] LABS: Amphetamine/Metha Screen,Urine Negative ng/ml (<1000)
[2023-06-27 18:59] LABS: Barbiturates Screen,Urine Negative ng/ml (<200); Benzodiazepines Screen,Urine Negative ng/ml (<200)
[2023-06-27 19:00] LABS: Cannabinoid Screen,Urine Positive ng/ml (<50)
[2023-06-27 19:01] LABS: Cocaine Screen,Urine Negative ng/ml (<300); Methadone Screen,Urine Negative ng/ml (<300)
[2023-06-27 19:02] LABS: Opiate Screen,Urine Negative ng/ml (<300); Phencyclidine Screen,Urine Negative ng/ml (<25)
== END 2023-06-27 23:59 ==
LOC: LAB.DROPOF 22:25
PROVIDERS: PCP Family Medicine; Visit Provider Family Medicine
DX: Z79.899 Other long term (current) drug therapy (principal)
CPT/HCPCS: 80307

== ENCOUNTER 2023-08-07 18:35 | Outpatient (CLI) | payer MEDICARE, SELFPAY ==
[2023-08-07 19:08] LABS: Basophils # 0.2 K/mm3 (0-0.2); Basophils % 1.2 % (0.1-2.0); Eosinophils # 0.2 K/mm3 (0.0-0.4); Eosinophils % 1.3 % (0.1-12.0); Hematocrit 45.6 % (37.0-47.0); Hemoglobin 14.4 g/dL (12.2-16.2); Lymphocytes # 4.3 K/mm3 (0.7-4.5); Lymphocytes % 32.9 % (10-50); Mean Corpuscular HGB Conc 31.6 g/dL (31.8-35.4); Mean Corpuscular Hemoglobin 33.2 pg (27.0-31.2); Mean Corpuscular Volume 104.9 fl (81-99); Mean Platelet Volume 8.8 fl (7.4-10.4); Monocytes # 0.9 K/mm3 (0.1-1.0); Neutrophils # 7.5 K/mm3 (1.8-7.8); Neutrophils % 57.6 % (37.0-80.0); Platelet Count 548 K/mm3 (142-424); Red Blood Count 4.34 M/mm3 (4.20-5.40); Red Cell Distribution Width 13.9 % (11.5-17.5); White Blood Count 12.9 K/mm3 (4.8-10.8)
[2023-08-07 19:31] LABS: Chloride 103 mmol/L (98-107); Potassium 4.8 mmoL/L (3.5-5.1); Sodium 135 mmol/L (136-145)
[2023-08-07 19:34] LABS: Alanine Aminotransferase 18 U/L (12-78); Albumin Level 4.4 g/dl (3.5-5.0); Albumin/Globulin Ratio 1.4 (1.1-1.8); Alkaline Phosphatase 126 U/L (38-126); Anion Gap 11.8 mEq/L (5-15); Aspartate Amino Transferase 32 U/L (14-36); Bilirubin,Total 0.4 mg/dl (0.2-1.3); Blood Urea Nitrogen 25 mg/dl (7-17); Carbon Dioxide 25 mmol/L (22.0-30.0); Estimated Glomerular Filt Rate 38 ml/min (>60); GFR (African American) 45 ML/MIN (>60); Globulin 3.1 g/dL (1.3-3.2); Total Protein,Serum 7.5 g/dl (6.3-8.2)
[2023-08-07 19:35] LABS: Glucose 96 mg/dl (74-100)
== END 2023-08-07 23:59 ==
LOC: LAB.DROPOF 18:36
PROVIDERS: PCP Internal Medicine; Visit Provider Internal Medicine
DX: R53.83 Other fatigue (principal); I10 Essential (primary) hypertension
CPT/HCPCS: 80053; 85025

== ENCOUNTER 2023-08-30 15:22 | Outpatient (CLI) | payer MEDICARE, SELFPAY ==
[2023-08-30 15:39] LABS: Basophils # 0.3 K/mm3 (0-0.2); Basophils % 1.9 % (0.1-2.0); Eosinophils # 0.2 K/mm3 (0.0-0.4); Eosinophils % 1.3 % (0.1-12.0); Hematocrit 45.8 % (37.0-47.0); Hemoglobin 14.6 g/dL (12.2-16.2); Lymphocytes # 3.5 K/mm3 (0.7-4.5); Lymphocytes % 26.6 % (10-50); Mean Corpuscular HGB Conc 31.8 g/dL (31.8-35.4); Mean Corpuscular Hemoglobin 32.8 pg (27.0-31.2); Mean Corpuscular Volume 103.2 fl (81-99); Mean Platelet Volume 7.8 fl (7.4-10.4); Monocytes # 0.6 K/mm3 (0.1-1.0); Monocytes % 4.9 % (1.7-9.3); Neutrophils # 8.5 K/mm3 (1.8-7.8); Neutrophils % 65.3 % (37.0-80.0); Platelet Count 511 K/mm3 (142-424); Red Blood Count 4.43 M/mm3 (4.20-5.40); Red Cell Distribution Width 13.7 % (11.5-17.5)
--- NOTE | 2023-08-30 15:53 | MR_ITS ---
FINAL REPORT CLINICAL HISTORY: back pain. COMPARISON: None FINDINGS: Multiplanar MR imaging of the lumbar spine was performed without and with contrast. On the sagittal T2-weighted images, disc degeneration is seen throughout. Endplate degenerative changes are present at multiple levels. There is 5 mm of anterolisthesis of L4 on L5. There is no evidence of fracture. The conus is seen at approximately the L1 level and has an unremarkable appearance. T12-L1: An annular bulge is present with facet hypertrophy and osteophytes. There is moderate bilateral neural foraminal narrowing present. L1-2: An annular bulge is present. With facet hypertrophy and osteophytes there is moderate right and mild left neural foraminal narrowing. L2-3: An annular bulge is present with facet hypertrophy and osteophytes. There is moderate bilateral neural foraminal narrowing. L3-4: An annular bulge is present facet arthropathy is present. There is a left foraminal disc protrusion with mild right and severe left neural foraminal narrowing. L4-5: An annular bulge is present with severe facet hypertrophy. There is severe right and mild left neural foraminal narrowing, right lateral recess stenosis, and L5 nerve root impingement. L5-S1: An annular bulge is present with facet arthropathy and osteophytes. There is severe right and mild left neural foraminal narrowing. There is contrast-enhancement in the posterior aspects of the L1-2, L4-5, and L5-S1 discs consistent with annular tears. There is a focus of abnormal signal in the gallbladder that may represent a gallstone. IMPRESSION: Multilevel mild degenerative disc disease and spondylosis with areas of neural foraminal narrowing as described, most prominent at the L4-5 level with right lateral recess stenosis and right L5 nerve root impingement. Contrast enhancement in the posterior aspects of the L1-2, L4-5, and L5-S1 discs consistent with an annular tear. There is a questionable gallstone in the gallbladder, if clinically indicated would recommend right upper quadrant ultrasound for further evaluation. Reviewed, Interpreted and Dictated by Tre Cervantes III, MD Transcribed by Esperanza Orellana Authenticated and . [facility]
[2023-08-30] MEDS: SODIUM CHLORIDE 0.9% 10ML SYR (RAD ONLY) 10 ML IV (16:54)
[2023-08-30] MEDS: GADOTERIDOL INJ 17ML SYRINGE 13 ML IV (16:54)
[2023-08-30 17:12] LABS: Thyroid Stimulating Hormone 2.77 uIU/mL (0.465-4.68)
[2023-08-30 17:48] LABS: Vitamin B12 398 pg/mL (239-931)
[2023-08-30 17:49] LABS: Folate 8.64 ng/mL
[2023-09-01 15:31] LABS: Peripheral Smear Review Scanned Result
== END 2023-08-30 23:59 ==
LOC: RAD 15:22
PROVIDERS: PCP Internal Medicine; Visit Provider Internal Medicine
DX: R53.83 Other fatigue (principal); E03.9 Hypothyroidism, unspecified; M54.9 Dorsalgia, unspecified; M54.50 Low back pain, unspecified
CPT/HCPCS: 36415; 72158; 76376; 82607; 82746; 84443; 85025; A9576

== ENCOUNTER 2023-09-24 15:00 | Outpatient (RCR) | payer MEDICARE, SELFPAY ==
--- NOTE | 2023-09-17 16:10 | HMH.PTOPEV ---
PT Outpatient Evaluation Rehab PT Outpatient Evaluation Start: 09/17/23 14:10 Freq: Status: Active Protocol: Document 09/17/23 14:10 ALVINA (Rec: 09/17/23 16:09 ALVINA [id number]) E-signed By Jayy Best, PT Outpatient Therapy Subjective History Subjective History Patient is a 67 year old female presenting to outpatient PT with reports of chronic CS pain of insidious onset starting approx 6 years ago. Patient reports intermittent NT to C5 dermatome. Most recent imaging indicates multilevel DDD and spondylosis. Comorbidities include hx of OP, R proximal humerus mass excision, CKD, HTN and LS pain . New diagnosis of cancer in past 12 No months? Chief Complaint Pain,Stiff,Paresthesia Symptom Type Sharp,Numbness,Tingling Symptoms Relieved By Rest/Positioning,Prescription Meds Symptoms Aggravated By Standing,Bending/Stooping, Physical Activity,Walking, Lifting Prior Functional Limitations None Current Functional Limitations Housework,Standing,Walking, Bending/Stooping Symptom Description Constant but Variable Level of pain today (0-10) 4 Pain scale - at its best (0-10) 4 Pain scale - at its worst (0-10) 7 Cervical Eval Palpation Cervical Muscles R CT Junction,L CT Junction,R Upper Trapezius,L Upper Trapezius Posture Head/C-Spine Posture Sitting Position C-Spine Flattened Head/C-Spine Posture Standing Position C-Spine Flattened Flexibility Deficits Upper Trapezius Muscle Length (R) Moderate Tightness,(L) Moderate Tightness Pectoralis Minor Muscle Length (R) Moderate Tightness,(L) Moderate Tightness Passive Joint Mobility Cervical PIVM Dec: R OA L OA R AA L AA R C2/3 L C2/3 R C3/4 L C3/4 R C4/5 L C4/5 R C5/6 L C5/6 R C6/7 L C6/7 R C7/T1 L C7/T1 AROM Cervical Spine Extension Active Range of 22 Motion (degrees) Cervical Spine Flexion Active Range of 56 Motion (degrees) Cervical Spine Right Lateral Flexion 22 Active Range of Motion (degrees) Cervical Spine Left Lateral Flexion 24 Active Range of Motion (degrees) Cervical Spine Right Rotation Active 37 Range of Motion (degrees) Cervical Spine Left Rotation Active 45 Range of Motion (degrees) MMT Bilateral Deltoid (C5) 5 Normal Biceps Brachii Strength Grade 5 Normal Wrist Extension Strength Grade 5 Normal Triceps Brachii Strength Grade 4 Good Wrist Flexion Strength Grade 5 Normal Extensor Pollicis Longus Strength Grade 5 Normal Finger Abduction Strength Grade 5 Normal Altered Sensation Right Upper extremity Dermatomes C5 Comment intermittent NT Special Test C-Spine Foraminal Compression (Spurling) Negative Left,Negative Right Test C-Spine Foraminal Distraction Test Positive Neck Disability Index Neck Disability Index Section 1: Pain Intensity The pain is fairly severe at the moment Section 2: Personal Care (washing, I can look after myself dressing, etc.) normally without causing extra pain Section 3: Lifting Pain prevents me lifting heavy weights off the floor, but I can manage Section 4: Reading I can read as much as I want to with slight pain in my neck Section 5: Headaches I have slight headaches, which come infrequently Section 6: Concentration I have a fair degree of difficulty in concentrating when I want to Section 7: Work I can do most of my usual work , but no more Section 8: Driving I can drive my car as long as I want with slight pain in my neck Section 9: Sleeping My sleep is midly disturbed (1 -2 hrs sleepless) Section 10: Recreation I am able to engage in all my recreation activities with some pain in NDI Score 15 Outpatient Therapy Assessment Impairments Problems/Impairmments Palpation Tenderness,Impaired Range of Motion,Impaired Strength,Impaired Walking, Impaired Standing,Impaired Lifting,Impaired Household Care,Impaired Bending, Subjective C/O Pain Prognosis Rehab Potential Good Clinical Impression Consistent with Diagnosis Yes Short Term Goals Number of Weeks 2 Decrease Subjective C/O Pain Yes: 5/10 at worst Patient to be Ind w/ HEP Yes Cna Goals Number of Weeks 4-6 Decreased Palpation Tenderness Yes: 1/4 Increase Range of Motion Yes: WNL all planes Increase Strength Yes: 5/5 inter scapular mm grossly Increase Ability to Walk Yes: 30 min without difficulty Increase Ability to Stand Yes: Improve Ability For Household Care Yes Improve Neck Disability Index Score Yes: 55 Decrease Subjective C/O Pain Yes: 2/10 at worst Outpatient Therapy Plan of Care Treatment Plan May Include Therapeutic Exercise Including Home Yes Exercise Program Manual Therapy Techniques Yes Neuromuscular Re-education Yes Therapeutic Activities to Return to Yes Previous Functional/Work Level Gait Training Yes ADL/Self Care Education Yes Mechanical Traction Yes Dry Needling Yes Thermal Modalities Yes Electrical Stimulation Yes Ultrasound/Phonophoresis Yes Iontophoresis Yes Orthotics/Bracing/Splinting Yes Vasopneumatic Compression Pump Yes Massage Yes Frequency Times per week 2 Duration Number of Weeks 4-6 Addendums This patient is a candidate for social No or vocational rehab? Patient/Guardian verbally acknowledges Yes understanding of treatment program and consents to further treatment? Patient/Guardian verbally acknowledges Yes understanding of diagnosis, prognosis and goals for treatment? Eval Complexity PT Charges 06784 - Moderate Complexity Shoulder/Elbow Eval Shoulder Objective Measurements Elbow Objective Measurements PHYSICIAN CERTIFICATION: I certify the specified therapy services for Ernestina Silvestre are required, authorized, and reviewed every 30 days.
== END 2023-09-24 15:05 | disposition home or self-care (01) ==
LOC: PT 15:00
PROVIDERS: Visit Provider Internal Medicine
DX: M54.2 Cervicalgia (principal)
CPT/HCPCS: 97110; 97140; 97163

== ENCOUNTER 2023-10-09 12:57 | Outpatient (POV) | payer MEDICARE, SELFPAY ==
[2023-10-09 13:40] VITALS: BP 105/80; PULSE 94; RESP 18; O2SAT 94; BMI 22.7
--- NOTE | 2023-10-09 13:51 | A.OFFVIS_ITS ---
HPI Data of Consult Patient: new to practice Consult date: 10/09/23 Requesting Physician: Marine Arechiga APRN Primary Care Provider: Jamaal Bryatn DO Consult Narrative Reason for consult: Low back pain History of present illness: Ms. Silvestre is a 67 year old female who presents today as a new patient. She is a referral from Dr. Kumar's office. Today she rates her pain an 8 out of 10. Patient states her pain is all in her neck and her low back. Patient does state this has been going on for years and progressively worsened. Patient does state that the low back is worse than the neck. She describes it as an aching, throbbing sensation that is almost like a band around her waist. She states that it is worse with increased activity or ambulation. Patient does state that certain movements seem to aggravate it. Patient has tried [id number] medications along with being prescribed gabapentin and oxycodone and tizanidine from her PCP. Patient states that she feels like the medication is not working as well and that it only last typically about 2 hours. Patient denies any prior surgery or injection history. Patient states that she has had physical therapy with some improvement of her neck symptoms. She states that she did have a TENS unit ordered. Patient does not do any NSAIDs due to decreased kidney function. Her Juan Miguel has been reviewed and is appropriate. CC: Marine Arechiga APRN [facility] Disclaimer: The information contained in this section may have been updated after the patient was seen, as this information can be updated by other users. Medical History (Updated 10/09/23 @ 13:54 by Marine Arechiga APRN) Marijuana abuse COPD (chronic obstructive pulmonary disease) HTN (hypertension) CAD (coronary artery disease) Osteoporosis Anxiety Vitamin D deficiency Chronic renal failure Surgical History (Updated 10/09/23 @ 13:43 by Ruthann Moore RN) Surgical history unknown Family History (Updated 10/09/23 @ 13:43 by Ruthann Moore RN) Other Unknown family medical history Social History (Updated 10/09/23 @ 13:44 by Ruthann Moore RN) Smoking Status: Current every day smoker tobacco type: cigarettes packs per day: 2 alcohol intake: never substance use type: denies use current occupational status: retired Travel in the last 8 weeks: None household members: significant other Review of Systems Review of Systems Review of systems:: pertinent systems reviewed and negative unless documented below Review of systems (narrative): Review of Systems: General: No recent weight changes, no fever, no sleep disturbances Respiratory: No cough, no shortness of air, no recurring pulmonary infections Cardiovascular/peripheral vascular: No chest pain, no palpitations, no edema, no shortness of breath Gastrointestinal: No new onset incontinence, normal bowel movements reported Genitourinary: No new onset incontinence Musculoskeletal: Neck pain, low back pain Psychiatric: [Normal mood/affect] Neurological: [Denies weakness in extremities], [denies balance issues] Meds Home Medications and Allergies Home Medications Medication Instructions Recorded Confirmed Type aspirin 81 mg tablet,delayed 81 mg PO DAILY HEART HEALTH 05/17/21 10/09/23 History release calcium carbonate (Calcium 600) 600 mg PO DAILY Supplement 05/17/21 10/09/23 History oxybutynin chloride 10 mg 10 mg PO DAILY BLADDER 02/20/23 10/09/23 History tablet,extended release 24 hr albuterol sulfate 90 mcg/actuation See Rx Instructions .Route 04/19/23 10/09/23 Rx aerosol inhaler .COMPLEX #8.5 grams alendronate 70 mg tablet See Rx Instructions .Route 04/19/23 10/09/23 Rx .COMPLEX #12 tabs atorvastatin 40 mg tablet 40 mg PO DAILY #90 tabs 04/19/23 10/09/23 Rx budesonide-formoterol HFA 80 1 inh inhalation BID #10.2 grams 04/19/23 10/09/23 Rx mcg-4.5 mcg/actuation aerosol inhaler (Symbicort) carvedilol 3.125 mg tablet See Rx Instructions .Route 04/19/23 10/09/23 Rx .COMPLEX #60 tabs cholecalciferol (vitamin D3) 25 See Rx Instructions .Route 04/19/23 10/09/23 Rx mcg (1,000 unit) capsule .COMPLEX #90 ea clopidogrel 75 mg tablet (Plavix) 75 mg PO QDAY #90 tabs 04/19/23 10/09/23 Rx ergocalciferol (vitamin D2) 1,250 See Rx Instructions .Route 04/19/23 10/09/23 Rx mcg (50,000 unit) capsule .COMPLEX #5 caps losartan 50 mg-hydrochlorothiazide 1 tab PO DAILY #90 tabs 04/19/23 10/09/23 Rx 12.5 mg tablet metoprolol succinate 25 mg See Rx Instructions .Route 04/19/23 10/09/23 Rx tablet,extended release 24 hr .COMPLEX #30 tabs spironolactone 25 mg tablet 25 mg PO DAILY #90 tabs 04/19/23 10/09/23 Rx (Aldactone) bupropion HCl 300 mg 24 hr tablet, 300 mg PO DAILY 30 days #30 tabs 09/09/23 10/09/23 Rx extended release varenicline 0.5 mg (11)-1 mg (42) See Rx Instructions PO PER PKG DIR 09/09/23 10/09/23 Rx tablets in a dose pack (Chantix #53 tabs Starting Month Box) gabapentin 800 mg tablet 800 mg PO TID Pain 30 days #90 tabs 10/09/23 10/09/23 Rx oxycodone 10 mg tablet 10 mg PO Q6H PRN pain 30 days #120 10/09/23 10/09/23 Rx tabs tizanidine 4 mg tablet 8 mg (2 x 4 mg) PO TID PRN muscle 10/09/23 10/09/23 Rx spasticity 30 days #180 tabs New Prescriptions to Start Prescriptions: Allergies Allergy/AdvReac Type Severity Reaction Status Date / Time No Known Allergies Allergy Mild Uncoded 10/08/23 15:06 Objective Vital signs: Pulse Resp BP Pulse Ox O2 Del Method 94 H 18 105/80 L 94 L Room Air 10/09/23 13:40 10/09/23 13:40 10/09/23 13:40 10/09/23 13:40 10/09/23 13:40 Narrative: Physical Exam: General: Alert and oriented x3, no acute distress, pleasant and cooperative Lungs: Respirations even and unlabored, symmetrical chest expansion Eyes: PERRL Musculoskeletal: Flexion and extension of lumbar [spine] somewhat guarded s econdary to pain, [antalgic gait noted] positive Kemps test Neurological: Speech clear, no gross sensory deficit Additional findings Additional findings: FINDINGS: Multiplanar MR imaging of the lumbar spine was performed without and with contrast. On the sagittal T2-weighted images, disc degeneration is seen throughout. Endplate degenerative changes are present at multiple levels. There is 5 mm of anterolisthesis of L4 on L5. There is no evidence of fracture. The conus is seen at approximately the L1 level and has an unremarkable appearance. T12-L1: An annular bulge is present with facet hypertrophy and osteophytes. There is moderate bilateral neural foraminal narrowing present. L1-2: An annular bulge is present. With facet hypertrophy and osteophytes there is moderate right and mild left neural foraminal narrowing. L2-3: An annular bulge is present with facet hypertrophy and osteophytes. There is moderate bilateral neural foraminal narrowing. L3-4: An annular bulge is present facet arthropathy is present. There is a left foraminal disc protrusion with mild right and severe left neural foraminal narrowing. L4-5: An annular bulge is present with severe facet hypertrophy. There is severe right and mild left neural foraminal narrowing, right lateral recess stenosis, and L5 nerve root impingement. L5-S1: An annular bulge is present with facet arthropathy and osteophytes. There is severe right and mild left neural foraminal narrowing. There is contrast-enhancement in the posterior aspects of the L1-2, L4-5, and L5-S1 discs consistent with annular tears. There is a focus of abnormal signal in the gallbladder that may represent a gallstone. IMPRESSION: Multilevel mild degenerative disc disease and spondylosis with areas of neural foraminal narrowing as described, most prominent at the L4-5 level with right lateral recess stenosis and right L5 nerve root impingement. Contrast enhancement in the posterior aspects of the L1-2, L4-5, and L5-S1 discs consistent with an annular tear. There is a questionable gallstone in the gallbladder, if clinically indicated would recommend right upper quadrant ultrasound for further evaluation. Reviewed, Interpreted and Dictated by Tre Cervantes III, MD Transcribed by Esperanza Orellana Authenticated and [facility] Assessment and Plan *Assessment and plan (1) Degenerative disc disease, lumbar: Status: Acute Category: Medical Code(s): M51.36 - Other intervertebral disc degeneration, lumbar region (2) Chronic low back pain: Status: Acute Qualifiers: Back pain laterality: bilateral Sciatica presence: without sciatica Qualified Code(s): M54.50 - Low back pain, unspecified; G89.29 - Other chronic pain Category: Medical Code(s): M54.50 - Low back pain, unspecified; G89.29 - Other chronic pain (3) Lumbar facet arthropathy: Status: Acute Category: Medical Code(s): M47.816 - Spondylosis without myelopathy or radiculopathy, lumbar region Plan Patient is experiencing significant pain in her low back with limited range of motion and positive Kemps test. I did discuss with patient that she may benefit from injection therapy such as a lumbar medial branch block however the patient states that she does not like needles and she does not want to proceed forward with this option. I have counseled the patient that we are an interventional pain clinic and that is primarily what we do. Patient acknowledges understanding. I have counseled her if in future this is something that she would be interested in or even the possibility of a pump trial she can contact our office for her next follow-up. Patient has been instructed to contact the clinic with any concerns before the next appointment. Dr. Giron has reviewed this note and agrees with this plan of care. This note was dictated using voice recognition software and make contain errors or omissions.
== END 2023-10-09 23:59 | disposition home or self-care (01) ==
LOC: SC.PAIN 13:01
PROVIDERS: PCP Internal Medicine; Visit Provider Nurse Practitioner Family
DX: M51.36 Other intervertebral disc degeneration, lumbar region (principal); M54.50 Low back pain, unspecified; G89.29 Other chronic pain; M47.816 Spondylosis without myelopathy or radiculopathy, lumbar region
CPT/HCPCS: 99202; G0463

== ENCOUNTER 2023-10-29 12:47 | Outpatient (CLI) | payer MEDICARE, SELFPAY ==
[2023-10-29 19:02] LABS: Basophils # 0.1 K/mm3 (0-0.2); Basophils % 1.1 % (0.1-2.0); Eosinophils % 0.4 % (0.1-12.0); Hematocrit 46.1 % (37.0-47.0); Hemoglobin 14.9 g/dL (12.2-16.2); Lymphocytes # 2.3 K/mm3 (0.7-4.5); Lymphocytes % 21.9 % (10-50); Mean Corpuscular HGB Conc 32.3 g/dL (31.8-35.4); Mean Corpuscular Hemoglobin 31.6 pg (27.0-31.2); Mean Platelet Volume 8.5 fl (7.4-10.4); Monocytes # 0.6 K/mm3 (0.1-1.0); Monocytes % 6.2 % (1.7-9.3); Neutrophils # 7.2 K/mm3 (1.8-7.8); Neutrophils % 70.4 % (37.0-80.0); Platelet Count 540 K/mm3 (142-424); Red Cell Distribution Width 14.3 % (11.5-17.5); White Blood Count 10.3 K/mm3 (4.8-10.8)
[2023-10-29 19:19] LABS: Alanine Aminotransferase 15 U/L (12-78); Albumin Level 4.1 g/dl (3.5-5.0); Albumin/Globulin Ratio 1.2 (1.1-1.8); Alkaline Phosphatase 129 U/L (38-126); Anion Gap 13.7 mEq/L (5-15); Aspartate Amino Transferase 26 U/L (14-36); Bilirubin,Total 0.4 mg/dl (0.2-1.3); Blood Urea Nitrogen 13 mg/dl (7-17); Calcium 10.3 mg/dl (8.4-10.2); Carbon Dioxide 24 mmol/L (22.0-30.0); Chloride 105 mmol/L (98-107); Estimated Glomerular Filt Rate 45 ml/min (>60); GFR (African American) 54 ML/MIN (>60); Globulin 3.5 g/dL (1.3-3.2); Glucose 112 mg/dl (74-100); Potassium 3.7 mmoL/L (3.5-5.1); Sodium 139 mmol/L (136-145); Total Protein,Serum 7.6 g/dl (6.3-8.2)
== END 2023-10-29 23:59 | disposition home or self-care (01) ==
LOC: LAB.DROPOF 10-30 12:47
PROVIDERS: PCP Internal Medicine; Visit Provider Internal Medicine
DX: R53.83 Other fatigue (principal); Z79.899 Other long term (current) drug therapy
CPT/HCPCS: 80053; 85025

== ENCOUNTER 2024-01-29 15:15 | Outpatient (CLI) | payer MEDICARE, SELFPAY ==
--- NOTE | 2024-01-29 15:20 | XR_ITS ---
FINAL REPORT CLINICAL HISTORY: Left foot pain FINDINGS: LEFT FOOT Three views demonstrate no acute fracture or dislocation. There is a screw in the medial malleolus. There is a sideplate and screws securing the distal fibula. A pes planus deformity is noted. There is sclerosis and lucency in the distal portion of the medial cuneiform. IMPRESSION: Chronic changes with no acute bony abnormality. Reviewed, Interpreted and Dictated by Marcos Alexis MD Transcribed by Diana Cespedes Authenticated and [facility]
--- NOTE | 2024-01-29 15:20 | XR_ITS ---
FINAL REPORT CLINICAL HISTORY: Right foot pain FINDINGS: RIGHT FOOT Three views demonstrate transverse fractures through the bases of the second, third, and fourth metatarsals. On the left lateral view a pes planus deformity is noted. IMPRESSION: Acute fractures as above. Reviewed, Interpreted and Dictated by Marcos Alexis MD Transcribed by Diana Cespedes Authenticated and [facility]
[2024-01-29 16:26] LABS: Albumin Level 4.3 g/dl (3.5-5.0); Chloride 108 mmol/L (98-107)
[2024-01-29 16:27] LABS: Potassium 4.8 mmoL/L (3.5-5.1); Sodium 137 mmol/L (136-145)
[2024-01-29 16:29] LABS: Alanine Aminotransferase 17 U/L (12-78); Aspartate Amino Transferase 29 U/L (14-36); Bilirubin,Unconjugated 0.1 mg/dL (0.0-1.1); Blood Urea Nitrogen 23 mg/dl (7-17); Cholesterol 215 mg/dl (140-200); Estimated Glomerular Filt Rate 41 ml/min (>60); GFR (African American) 49 ML/MIN (>60); Total Protein,Serum 7.3 g/dl (6.3-8.2); Triglycerides 179 mg/dl (30-150); VLDL Cholesterol 36 mg/dL (0-40)
[2024-01-29 16:30] LABS: Alkaline Phosphatase 107 U/L (38-126); Bilirubin,Direct 0.5 mg/dl (0.0-0.4); Bilirubin,Total 0.5 mg/dl (0.2-1.3); Calcium 9.7 mg/dl (8.4-10.2); Chol/HDL Ratio 2.9 (1-3.5); Glucose 99 mg/dl (74-100); HDL Cholesterol 75 mg/dl (40-60)
[2024-01-29 16:41] LABS: Direct LDL Cholesterol 83.02 mg/dL (100-129)
[2024-01-29 18:22] LABS: Anion Gap 10.8 mEq/L (5-15); Carbon Dioxide 23 mmol/L (22.0-30.0)
== END 2024-01-29 23:59 | disposition home or self-care (01) ==
LOC: RAD 15:16
PROVIDERS: Nurse Practitioner Family; PCP Internal Medicine; Visit Provider Podiatrist
DX: M79.671 Pain in right foot (principal); M79.672 Pain in left foot; E78.2 Mixed hyperlipidemia; I25.10 Atherosclerotic heart disease of native coronary artery without angina pectoris; F17.210 Nicotine dependence, cigarettes, uncomplicated
CPT/HCPCS: 36415; 73630; 80048; 80061; 80076

== ENCOUNTER 2024-03-05 13:03 | Outpatient (CLI) | payer MEDICARE, SELFPAY ==
--- NOTE | 2024-03-05 | CA_ITS ---
APPROVED REPORT Exam: Pharmacologic Technologist: Makayla Asencio, Ht: 5 ft 7 in Wt: 147 lbs BSA: 1.77 m2 HR: 82 bpm BP: 167/104 mmHg Rhythm: NSR, LBBB Medical History Medical History: HTN, Hyperlipidemia, Smoking Medications: Aspirin,,,,, Gabapentin,,,,, Escitalopram,,,,, Carvedilol,,,,, SyMBICORT,,,,, Albuterol,,,,, Vit D3,,,,, CloPIdogrel,,,,, OxYCODONE,,,,, Tizanidine,,,,, BuPROPION,,,,, OxYbutynin,,,,, Cardiac Risk Factors: HTN, Hyperlipidemia, Smoking Stress Test Details Test: LEXISCAN HR Resting HR: 82 bpm Max Heart Rate (APMHR): 152 bpm Max HR Achieved: 97 bpm Target HR (85% APMHR): 129 bpm % of APMHR: 64 Recovery HR: 91 bpm BP Resting BP: 167.0/104.0 mmHg Max BP: 172.0/97.0 mmHg Recovery BP: 172.0/97.0 mmHg ECG Resting ECG: NSR,LBBB Stress ECG: No significant ST changes Arrhythmia: PACs, PVCs Clinical Exercise duration: 04:01 min Highest Stage Achieved: Exercise capacity: 1.0 METs Stress ECG Conclusion Switched from exercise to lexiscan due to LBBB. Patient had a mild headache during infusion. No chest pain. Ectopy: PACs, PVCs ST changes: No significant ST-T changes. Conclusion: Nondiagnostic ECG portion of Lexiscan stress test due to baseline LBBB. Myoview images reported separately. Test Summary REST . . . . . . . Resting REST 04:19 . . 82 . 167/104 . . Stage 1 . . . . . . . Myoview Injected Stage 1 01:00 . . 93 . . . . Stage 2 01:00 . . 96 . 149/ 86 . . Stage 3 01:00 . . 94 . 165/ 92 . . Stage 4 01:00 . . 91 . 165/100 . . Stage 4 01:01 . . 91 . 165/100 . Stop exercise at 04:01 RECOVERY 01:00 . . 91 . . . . RECOVERY 02:00 . . 90 . . . . RECOVERY 03:00 . . 90 . 172/101 . . RECOVERY 03:15 . . 89 . 172/101 . . Electronically signed by : Carmenza Flores MD 03/09/2024 12:28:53
--- NOTE | 2024-03-05 13:04 | NM_ITS ---
APPROVED REPORT Exam: Nuclear Stress Test Indication: SOB, HTN, Tobacco use, CAD Patient Location: Outpatient Stress Tech: Emma Asencio NM Tech:Smita Gallo, ARRT, RT (R)(N) Ht: 5 ft 7 in Wt: 145 lbs Bra Size: 34B HR: 82 bpm BP: 167/104 mmHg BSA: 1.76 m2 Rhythm: NSR TID: 1.12 BMI: 22.7 History: SOB, HTN, Tobacco use, CAD Procedure: Patient received 0.4 mg of intravenous Lexiscan, resting heart rate 82 bpm, resting blood pressure 167/104 mmHg, with Lexiscan maximum heart rate achieved was 97 bpm which is % of the maximum predicted heart rate and blood pressure was 172/97 mmHg. With Lexiscan, patient denied any complaint of chest pain. Cardiac Stress and Resting SPECT Images: Cardiac Stress and Resting SPECT images were obtained using technetium 99m Myoview 30.5 mCi stress and 10.02 mCi at rest. Technically difficult study due to significant soft tissue overlap with the cardiac borders. This may affect the diagnostic interpretation of the study findings. Resting and stress imaging in supine and prone positions demonstrate a medium sized, mild, predominantly fixed perfusion defect in the basal to mid inferior and inferoseptal LV guidry. There is a minimal region of reversible ischemia in the surrounding territory. Gated imaging demonstrates normal global and regional LV systolic function. LVEF is calculated at 55%. Conclusion: Technically difficult study. Medium sized, mild, predominantly fixed perfusion defect in the basal to mid inferior and inferoseptal LV guidry. There is a minimal region of reversible ischemia in the surrounding territory. While findings may be suggestive of diaphragmatic attenuation, true reversible ischemia cannot be ruled out. Gated imaging demonstrates normal global and regional LV systolic function. LVEF is calculated at 55%. In the setting of technically difficult study and possible reversible ischemia, further evaluation is suggested, if clinically indicated. Electronically signed by : Carmenza Flores MD 03/09/2024 12:32:04
--- NOTE | 2024-03-05 13:04 | CA_ITS ---
APPROVED REPORT EXAM: Comprehensive 2D, Doppler, and color-flow Echocardiogram Threading Machine Operator: Allison Mulligan CRT Ht: 5 ft 7 in Wt: 146lbs BSA: 1.77 BP: 115/74 mmHg Indications: COPD, Shortness of Breath, CAD, Hyperlipidemia, smoker 2D Dimensions LA Volume 37.50 mL LA Volume Index 21.19 mL/m2 (M/F) 16-34 M-Mode Dimensions RVDd 3.26 cm (0.9-2.6) LA Diam 4.23 cm (1.9-4.0) LVDd 4.26 cm (3.5-5.7) LVDs 3.01 cm (3.5-5.7) IVSd 1.18 cm (0.6-1.1) PWd 0.43 cm (0.6-1.1) EF (Teich) 56.60% FS 29.30% EDV (Teich) 81.30 mL TAPSE 1.69 (<1.7) ESV (Teich) 35.30 mL LV Diastology E Decel Time 150 (160-240 msec) E/A Ratio 0.5 MED A' 12.30 cm/s LAT A' 16.30 cm/s Aortic Valve AO Peak GR. 6.10 mmHg Mitral Valve MV E Max Mundo. 54.0 (40-130 cm/s) MV A Velocity 107.0 (40-130 cm/s) E/A Ratio 0.51 MV PHT 44.0 ms Tricuspid Valve TR P. Velocity 144.00 cm/s RAP Estimate 10.00 mmHg RVSP 18.30 mmHg Left Ventricle The left ventricle is normal size. The left ventricular systolic function is normal. The left ventricular ejection fraction is within the normal range. There is increased LV wall thickness. There is normal LV segmental wall motion. The left ventricular diastolic function is normal. LVEF is 55%. Right Ventricle The right ventricle is normal size. The right ventricular systolic function is normal. Atria The left atrium size is normal. The right atrium size is normal. There is no Doppler evidence of interatrial shunt. Aortic Valve The aortic valve is mildly thickened. There is no aortic valvular stenosis. No aortic regurgitation is present. Mitral Valve The mitral valve is normal in structure. No evidence of mitral valve stenosis. Trace mitral regurgitation. Tricuspid Valve The tricuspid valve leaflets are thin and pliable. Trace tricuspid regurgitation. There is insufficient TR jet to estimate RVSP. Pulmonic Valve The pulmonary valve is normal in structure. Trace pulmonic regurgitation. Great Vessels The aortic root is normal in size. The ascending aorta is not well-visualized. IVC is normal in size and collapses >50% with inspiration. Pericardium There is no pericardial effusion. Other Information Study Quality: Fair Conclusion Normal biventricular systolic function. No significant valvular stenosis or regurgitation. Electronically signed by : Carmenza Flores MD 03/09/2024 00:34:24
[2024-03-05] MEDS: SODIUM CHLORIDE 0.9% 10ML SYR (RAD ONLY) 10 ML IV ×2 (14:48→14:49)
[2024-03-05] MEDS: REGADENOSON 0.4MG/5ML SYRINGE 0.4 MG IV (14:48)
[2024-03-05] MEDS: ISOTOPE MYOVIEW (PER STUDY) 1 DOSE IV (14:49)
--- NOTE | 2024-03-05 15:57 | MM_ITS ---
PROCEDURE INFORMATION: Exam: MG Bilateral Screening 3D Mammography Exam date and time: 03/05/2024 3:41 PM Age: 68 years old Clinical indication: Screening examination TECHNIQUE: Imaging protocol: Bilateral Screening tomosynthesis and 2D mammography including computer-aided detection (CAD) when performed. COMPARISON: 1. MG MM DIG SCREENING MAMM BI W/CAD 06/13/2020 1:39 PM 2. MG MM DIG SCREENING MAMM BI W/CAD 05/12/2019 1:10 PM FINDINGS: MAMMOGRAPHY: Breast composition: There are scattered areas of fibroglandular density. Mass: None. Architectural distortion: None. Calcifications: No suspicious calcifications. Asymmetric density: None. Skin thickening: None. Axillary adenopathy: None. IMPRESSION: No mammographic evidence of malignancy. Annual screening is recommended unless otherwise clinically indicated. ASSESSMENT: BI-RADS Category 1: Negative.
== END 2024-03-05 23:59 | disposition home or self-care (01) ==
LOC: RAD 13:04
PROVIDERS: PCP Internal Medicine; Visit Provider Nurse Practitioner Family
DX: R06.02 Shortness of breath (principal); I25.10 Atherosclerotic heart disease of native coronary artery without angina pectoris; Z12.31 Encounter for screening mammogram for malignant neoplasm of breast
CPT/HCPCS: 77063; 77067; 78452; 93017; 93018; 93306; A9502; J2785

== ENCOUNTER 2024-04-21 09:04 | Day surgery (SDC) | payer MEDICARE, SELFPAY ==
[2024-04-21] VITALS (9 sets, daily range): BP systolic 126–164; BP diastolic 74–96; PULSE 62–83; RESP 16–18; O2SAT 92–97; BMI 22.7
--- NOTE | 2024-04-21 07:20 | IR_ITS ---
APPROVED REPORT Patient Location: Outpatient PROCEDURES Left heart catheterization Left ventriculogram Selective coronary angiogram INDICATION Abnormal Myoview, Known coronary artery disease, Preoperative evaluation Informed consent was obtained prior to the procedure. COMPLICATIONS NONE Estimated Blood Loss: LESS THAN 10 ML TECHNIQUE One percent lidocaine used to anesthetize the right anterior aspect of the wrist. The right radial artery was accessed via the Seldinger technique. A 6 [place] sheath was placed in the right radial artery. 2.5 mg of Verapamil, 800 mcg of nitroglycerin, 1mg Lidocaine and 5000 U Heparin were given through the arterial sheath. The 6 [place] JL 3 guide catheter was also used to perform left heart catheterization, left ventriculogram and selective coronary angiogram. At the end of the procedure the sheath was removed good hemostasis was achieved using Traclet band, patient was transferred to the postop holding area in stable condition. ANGIOGRAPHIC RESULTS The left main artery Normal The left anterior descending artery Has a stent in the proximal segment which is widely patent free of in-stent restenosis with excellent proximal distal transitioning. The LAD then trifurcates into 2 large first and second diagonal arteries which are widely patent. The mid LAD is smaller than the 2 diagonal arteries and has a concentric 40% stenosis The circumflex artery Nondominant with 20 to 30% stenosis in the first obtuse marginal artery The right coronary artery Large dominant with a stent in the mid segment which is widely patent free of in-stent restenosis with excellent proximal distal transitioning The LAURENT ventriculogram reveals Preserved at 55% with mild anterior wall hypokinesis The left ventricular end-diastolic pressure 15 mmHg IMPRESSION Patent stents as described above Preserved ejection fraction with mild regional wall motion abnormality Normal LVEDP PLAN 1. Patient is alone acceptable risk to proceed with elective outpatient surgery 2. Continue medical management for coronary disease Electronically signed by : Lamont Rico MD 04/21/2024 13:16:17
[2024-04-21 09:42] LABS: Basophils # 0.2 K/mm3 (0-0.2); Basophils % 1.6 % (0.1-2.0); Eosinophils # 0.2 K/mm3 (0.0-0.4); Eosinophils % 1.8 % (0.1-12.0); Hematocrit 43.2 % (37.0-47.0); Hemoglobin 14.4 g/dL (12.2-16.2); Lymphocytes # 2.7 K/mm3 (0.7-4.5); Lymphocytes % 26.5 % (10-50); Mean Corpuscular HGB Conc 33.3 g/dL (31.8-35.4); Mean Corpuscular Hemoglobin 31.8 pg (27.0-31.2); Mean Corpuscular Volume 95.4 fl (81-99); Mean Platelet Volume 7.1 fl (7.4-10.4); Monocytes # 0.6 K/mm3 (0.1-1.0); Monocytes % 5.9 % (1.7-9.3); Neutrophils # 6.7 K/mm3 (1.8-7.8); Neutrophils % 64.3 % (37.0-80.0); Platelet Count 456 K/mm3 (142-424); Red Blood Count 4.52 M/mm3 (4.20-5.40); Red Cell Distribution Width 13.7 % (11.5-17.5); White Blood Count 10.4 K/mm3 (4.8-10.8)
[2024-04-21 09:43] LABS: Chloride 100 mmol/L (98-107)
[2024-04-21 09:44] LABS: Potassium 4.2 mmoL/L (3.5-5.1); Sodium 136 mmol/L (136-145)
[2024-04-21 09:47] LABS: Anion Gap 11.2 mEq/L (5-15); Blood Urea Nitrogen 31 mg/dl (7-17); Calcium 9.5 mg/dl (8.4-10.2); Carbon Dioxide 29 mmol/L (22.0-30.0); Creatinine Clearance Estimated 35 mL/min (50-200); Estimated Glomerular Filt Rate 32 ml/min (>60); GFR (African American) 39 ML/MIN (>60); Glucose 100 mg/dl (74-100)
[2024-04-21] MEDS: diazePAM 5MG TABLET 5 MG PO (10:01)
[2024-04-21] MEDS: 0.9 % SODIUM CHLORIDE 500 ML 25 ML IV (12:36)
[2024-04-21] MEDS: diphenhydrAMINE 50MG/ML VIAL 50 MG IV (12:36)
[2024-04-21] MEDS: HEPARIN 1,000 UNITS/ML 10ML VIAL (CATH LAB) 10000 UNIT IV (12:36)
[2024-04-21] MEDS: LIDOCAINE 1% 10ML MDV 20 ML IJ (12:37)
[2024-04-21] MEDS: NITROGLYCERIN 800MCG/8ML SYR (CATH LAB) 800 MCG IA (12:37)
[2024-04-21] MEDS: VERAPAMIL 2.5MG/ML 2ML VIAL 2.5 MG IV (12:37)
[2024-04-21] MEDS: HEPARIN 1,000 UNITS/500ML NS (CATH LAB) 3000 UNIT IV (12:37)
[2024-04-21] MEDS: MIDAZOLAM HCL 1MG/ML 5ML VIAL 1 MG IV (13:09)
[2024-04-21] MEDS: MIDAZOLAM 2MG/2ML VIAL 1 MG IV (13:09)
[2024-04-21] MEDS: FENTANYL 100MCG/2ML VIAL 50 MCG IV (13:10)
[2024-04-21] MEDS: IOPAMIDOL-370 (76%);100ML BOTTLE 50 ML IV (14:17)
== END 2024-04-21 15:07 | disposition home or self-care (01) ==
PROVIDERS: PCP Internal Medicine; Visit Provider Internal Medicine
DX: I25.118 Atherosclerotic heart disease of native coronary artery with other forms of angina pectoris (principal); I12.9 Hypertensive chronic kidney disease with stage 1 through stage 4 chronic kidney disease, or unspecified chronic kidney disease; N18.31 Chronic kidney disease, stage 3a; R94.39 Abnormal result of other cardiovascular function study; R06.02 Shortness of breath; E78.2 Mixed hyperlipidemia; J43.2 Centrilobular emphysema; F17.210 Nicotine dependence, cigarettes, uncomplicated; Z95.5 Presence of coronary angioplasty implant and graft; Z79.01 Long term (current) use of anticoagulants; E55.9 Vitamin D deficiency, unspecified; Z79.899 Other long term (current) drug therapy
CPT/HCPCS: 80048; 85025; 93458; 99152; C1725; C1769; J1200; J1644; J2250; J3010; Q9967

== ENCOUNTER 2024-06-18 09:15 | Outpatient (CLI) | payer MEDICARE, SELFPAY ==
[2024-06-18 18:59] LABS: Creatinine,Urine Random 79 mg/dL (Not Estab.)
[2024-06-18 19:03] LABS: Microalbumin/Creatinine Ratio 18.4
== END 2024-06-18 23:59 ==
LOC: LAB.DROPOF 06-19 09:15
PROVIDERS: PCP Internal Medicine; Visit Provider Internal Medicine
DX: I10 Essential (primary) hypertension (principal)
CPT/HCPCS: 82043; 82570

== ENCOUNTER 2024-12-16 14:50 | Outpatient (CLI) | payer MEDICARE, SELFPAY ==
[2024-12-16 15:50] LABS: Hematocrit 43.0 % (37.0-47.0); Hemoglobin 13.8 g/dL (12.2-16.2); Immature Granulocytes % 0.4 %; Mean Corpuscular HGB Conc 32.1 g/dL (31.8-35.4); Mean Corpuscular Hemoglobin 31.7 pg (27.0-31.2); Mean Corpuscular Volume 98.9 fl (81-99); Nucleated Red Blood Cells % 0 %; Platelet Count 486 K/mm3 (142-424); Red Blood Count 4.35 M/mm3 (4.20-5.40); Red Cell Distribution Width-SD 55.8 fL; White Blood Count 9.6 K/mm3 (4.8-10.8)
--- OUTSIDE RECORDS SUMMARY | 2024-12-16 15:52 | XMS_ITS | CCD ---
Author Organization Unknown Care Team Providers Care Sales Enablement Analyst Name Role Phone Unavailable Primary Care Provider Unavailabl e Unavailable Chronic Care Management Unavaila ble Summary Purpose DataExchange Insurance Providers Payer name Policy type / Coverage type Covered libertarian ID Effective Begin Date Effective End Date [facility] [id number] Unknown Unknown Family History Family History data not found Medication Administered No Medication Administered data Reason For Visit No Reason For Visit data Medical Equipment No Medical Equipment data Advance Directives No Advance Directive data
--- OUTSIDE RECORDS SUMMARY | 2024-12-16 15:52 | XMS_ITS | CCD ---
Author Organization Unknown Care Team Providers Care Director Regulatory Affairs Name Role Phone Unavailable Primary Care Provider Unavailabl e Unavailable Chronic Care Management Unavaila ble Summary Purpose DataExchange Insurance Providers Payer name Policy type / Coverage type Covered constitution party ID Effective Begin Date Effective End Date [facility] [id number] Unknown Unknown Family History Family History data not found Medication Administered No Medication Administered data Reason For Visit No Reason For Visit data Medical Equipment No Medical Equipment data Advance Directives No Advance Directive data
[2024-12-16 16:50] LABS: Alanine Aminotransferase 12 U/L (12-78); Albumin Level 4.3 g/dl (3.5-5.0); Alkaline Phosphatase 108 U/L (38-126); Anion Gap 12.7 mEq/L (5-15); Aspartate Amino Transferase 25 U/L (14-36); Bilirubin,Direct 0.3 mg/dl (0.0-0.4); Bilirubin,Indirect 0.0 mg/dL (0.0-0.9); Bilirubin,Total 0.3 mg/dl (0.2-1.3); Bilirubin,Unconjugated 0.0 mg/dL (0.0-1.1); Blood Urea Nitrogen 24 mg/dl (7-17); Calcium 10.3 mg/dl (8.4-10.2); Carbon Dioxide 26 mmol/L (22.0-30.0); Chloride 103 mmol/L (98-107); Cholesterol 179 mg/dl (140-200); Creatinine,Serum 1.20 mg/dl (0.52-1.04); Estimated Glomerular Filt Rate 45 ml/min (>60); GFR (African American) 54 ML/MIN (>60); Glucose 104 mg/dl (74-100); HDL Cholesterol 69 mg/dl (40-60); Magnesium 1.8 mg/dl (1.6-2.3); Potassium 4.7 mmoL/L (3.5-5.1); Sodium 137 mmol/L (136-145); Total Protein,Serum 7.0 g/dl (6.3-8.2); Triglycerides 104 mg/dl (30-150)
[2024-12-16 17:13] LABS: Free T4 (Free Thyroxine) 0.97 ng/dl (0.78-2.19)
[2024-12-16 17:22] LABS: Thyroid Stimulating Hormone 2.37 uIU/mL (0.465-4.68)
== END 2024-12-16 23:59 | disposition home or self-care (01) ==
LOC: LAB 14:51
PROVIDERS: PCP Internal Medicine; Visit Provider Nurse Practitioner
DX: I25.10 Atherosclerotic heart disease of native coronary artery without angina pectoris (principal); I10 Essential (primary) hypertension
CPT/HCPCS: 36415; 80048; 80061; 80076; 83735; 84439; 84443; 85025

== ENCOUNTER 2025-04-12 12:59 | Outpatient (CLI) | payer MEDICARE, SELFPAY ==
--- OUTSIDE RECORDS SUMMARY | 2025-04-12 13:03 | XMS_ITS | Data Portability ---
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 She does have significant DDD on her cervical MRI. I do not have any lumbar imaging for review. She was previously under care of another physician but unfortunately is no longer able to receive her medications from him for unknown reasons. She is on high dose medication 60 MME which does help her pain greatly. Unfortunately- I discussed with her that I cannot justify continuing this high dose of medication with lack of conservative treatment in the past- patient has not failed many conservative treatments including topicals, heat, ice, massage, career placement services counselor, physical therapy, any interventions, or surgical evaluation of any kind. I feel she was started on strong opioids rather prematurely and that is not how I practice pain medicine. I feel opioids should be used as a last resort therapy in most cases- especially high dose opioids . This was explained to her in great detail. She also is smoking marijuana regularly- unsure if she would be able to cease use which would be a requirement to obtain controlled substances from me. We discussed a dose reduction in her opioids and referral to PT and potentially some interventions- she is not interested in any of these possibilities- becomes tearful and states I can't take less medication . No follow up appointment will be given- patient prefers to be evaluated elsewhere. [email or web address] Not available 08/16/2023 11:37:06 Plan of Treatment Reminders Order Date Submit Date Provider Last Modified By Organization Details Last Modified Time Details Appointments None recorded. Lab drug screen, urine - Meds: NPE SB 2023 024 YARELI Ruffin MD [facility] ([facility] House Lab), [address] [facility] [facility] [place], [address], 4 08:03:44 CMP, serum or plasma 2023 024 debby Ruffin MD [facility] (In House Lab), [address] [place] [address], [id number], 4 10:13:12 gamma-gluta myl transferase (ggt), serum 2023 024 debby Ruffin MD [facility] (In House Lab), [address] [place] [address], [id number], 4 10:13:13 CBC w/ auto diff 2023 024 debby Ruffin MD [facility] (In House Lab), [address] [place] [address], [id number], 4 10:13:13 venipunctur e 2023 024 reeland 4 Atul Ruffin MD [facility] (In House Lab), [address] [place] [address], [id number], 4 15:58:31 Referral None recorded. Procedures None recorded. Surgeries None recorded. Imaging None recorded. Medication Orders None recorded. Patient TargetsNo targets recorded. Patient InstructionsNo instructions recorded. Reason for Referral None Reported. Results Created Date Observation Date Name Description Value Unit Range Abnormal Flag Note LastModifiedBy Organization Detail LastModifiedTime 08/15/19 24 08/15/2023 GABAP ENTIN abnormal status abnormal Not Available Flora Ruffin MD [facility] (In House Lab) [facility] [facility] [place], [address], 08/23/2023 08:03:47 08/15/19 24 08/15/2023 GABAP ENTIN abnormal status high Not Available Flora Ruffin MD [facility] (In House Lab) [address] [place] [address], [id number], 08/23/2023 08:03:47 08/15/19 24 08/20/2023 OXYCO DONE DEFIN ITIVE PANEL -LC/M S oxycodone 2087.0 NG/mL <75.0 abnormal Not Available Atul Ruffin MD [facility] (In House Lab) [address] [place] [address], [id number], 08/23/2023 08:03:46 08/15/19 24 08/20/2023 OXYCO DONE DEFIN ITIVE PANEL -LC/M S noroxycodone >5000 NG/mL <75.0 abnormal Not Available Dangelo Ruffin MD [facility] (In House Lab) [address] [place] [address], [id number], 08/23/2023 08:03:46 08/15/19 24 08/20/2023 OXYCO DONE DEFIN ITIVE PANEL -LC/M S oxymorphone 3548.1 NG/mL <75.0 abnormal Not Available Darrell Ruffin MD [facility] (In House Lab) [address] [place] [address], [id number], 08/23/2023 08:03:46 08/15/19 24 08/20/2023 GABAP ENTIN DEFIN ITIVE PANEL -LC/M S gabapentin >22263 NG/mL <5000. 0 abnormal Not Available Atul Ruffin MD [facility] (In House Lab) [address] [place] [address], [id number], 08/23/2023 08:03:46 08/15/19 24 08/22/2023 CLARIBEL KIM D DEFIN ITIVE PANEL -LC/M S 32-axr-5-car boxy-delta9- THC 57.4 NG/mL <25.0 abnormal Not Available Flora Ruffin MD [facility] (In House Lab) [address] [place] [address], [id number], 08/23/2023 08:03:45 08/15/19 24 08/22/2023 CLARIBEL Gomes DEFIN ITIVE PANEL -LC/M S cannabidiol 0.0 NG/mL <30.0 Not Available Flora Ruffin MD [facility] (In House Lab) [address] [place] [address], [id number], 08/23/2023 08:03:45 08/15/19 24 08/22/2023 BENZO DIAZE PINE DEFIN ITIVE PANEL - LC/MS alprazolam 0 NG/mL <75.0 Not Available Atul Ruffin MD [facility] (In House Lab) [address] [place] [address], [id number], 08/23/2023 08:03:45 08/15/19 24 08/22/2023 BENZO DIAZE PINE DEFIN ITIVE PANEL - LC/MS A-hydroxyalp razolam 0 NG/mL <75.0 Not Available Flora Ruffin MD [facility] (In House Lab) [address] [place] [address], [id number], 08/23/2023 08:03:45 08/15/19 24 08/22/2023 BENZO DIAZE PINE DEFIN ITIVE PANEL - LC/MS clonazepam 0 NG/mL <75.0 Not Available Atul Ruffin MD [facility] (In House Lab) [address] [place] [address], [id number], 08/23/2023 08:03:45 08/15/19 24 08/22/2023 BENZO DIAZE PINE DEFIN ITIVE PANEL - LC/MS 7-aminoclona zepam 83.5 NG/mL <75.0 abnormal Not Available Flora uRffin MD [facility] (In House Lab) [address] [place] [address], [id number], 08/23/2023 08:03:45 08/15/19 24 08/22/2023 BENZO DIAZE PINE DEFIN ITIVE PANEL - LC/MS diazepam 0 NG/mL <75.0 Not Available Atul Ruffin MD [facility] (In House Lab) [address] [place], [address], 08/23/2023 08:03:45 08/15/19 24 08/22/2023 BENZO DIAZE PINE DEFIN ITIVE PANEL - LC/MS oxazepam 0 NG/mL <75.0 Not Available Atul Ruffin MD [facility] (In House [facility]) [address] [place] [address], [address], 08/23/2023 08:03:45 08/15/19 24 08/22/2023 BENZO DIAZE PINE DEFIN ITIVE PANEL - LC/MS temazepam 0 NG/mL <75.0 Not Available Atul Ruffin MD [facility] (In House [facility]) [address] [place] [address], [address], 08/23/2023 08:03:45 08/15/19 24 08/22/2023 BENZO DIAZE PINE DEFIN ITIVE PANEL - LC/MS lorazepam 0 NG/mL <75.0 Not Available Atul Ruffin MD [facility] (In [facility]) [address] [place] [address], [id number], 08/23/2023 08:03:45 08/15/19 24 08/15/2023 D-PRE SUMPT REINALDO URINE DRUG REPOR T amphetamine NEGATI VE NG/mL <1000. 0 Not Available Atul Ruffin MD [facility] ([facility]) [address] [place] [address], [address], 08/23/2023 08:03:44 08/15/19 24 08/15/2023 D-PRE SUMPT REINALDO URINE DRUG REPOR T benzodiazepi ne 14.0 NG/mL <200.0 Curre nt metho d may not detec t low level s of Klono pin Not Available Atul Ruffin MD [facility] ([facility]) [address] [place] [address], [id number], 08/23/2023 08:03:44 08/15/19 24 08/15/2023 D-PRE SUMPT RIENALDO URINE DRUG REPOR T buprenorphin e NEGATI VE NG/mL <10.0 Not Available Atul Ruffin MD [facility] ([facility]) [address] [place] [address], [id number], 08/23/2023 08:03:44 08/15/19 24 08/15/2023 D-PRE SUMPT REINALDO URINE DRUG REPOR T cannabinoid POSITI VE NG/mL <50.0 high Not Available Atul Ruffin MD [facility] (In [facility]) [address] [place] [address], [id number], 08/23/2023 08:03:44 08/15/19 24 08/15/2023 D-PRE SUMPT REINALDO URINE DRUG REPOR T cocaine NEGATI VE NG/mL <300.0 Not Available Atul Ruffin MD [facility] (In [facility]) [address] [place] [address], [address], 08/23/2023 08:03:44 08/15/19 24 08/15/2023 D-PRE SUMPT REINALDO URINE DRUG REPOR T ethanol NEGATI VE mg/dL <50.0 Not Available Atul Ruffin MD [facility] ([facility]) [address] [place] [address], [id number], 08/23/2023 08:03:44 08/15/19 24 08/15/2023 D-PRE SUMPT REINALDO URINE DRUG REPOR T methadone 4.0 NG/mL <300.0 Not Available Atul Ruffin MD [facility] ([facility]) [address] [place] [address], [address], 08/23/2023 08:03:44 08/15/19 24 08/15/2023 D-PRE SUMPT REINALDO URINE DRUG REPOR T opiates 136.0 NG/mL <300.0 Opiat es inclu caesar Codei ne,Mo rphin e, [place] morph one,H ydroc odone Not Available Atul Ruffin MD [facility] ([facility]) [address] [place] [address], [address], 08/23/2023 08:03:44 08/15/19 24 08/15/2023 D-PRE SUMPT REINALDO URINE DRUG REPOR T oxycodone >793 NG/mL <300.0 high Not Available Atul Ruffin MD [facility] ([facility]) [address] [place] [address], [id number], 08/23/2023 08:03:44 08/15/19 24 08/15/2023 D-PRE SUMPT REINALDO URINE DRUG REPOR T urine creatinine (validity test) 86.4 mg/dL 20.0 - 300.0 Not Available Atul Ruffin MD [facility] ([facility]) [address] [place] [address], [address], 08/23/2023 08:03:44 Result Notes Documentation Provider Name and Address Organization Details Recorded Time Gabapentin, Quantitative, Urine : +THC Emma Pascual MD [address] [place] [address], [phone], [facility] 09/12/2023 13:41:41 Problems Name Problem SNOMED Code Status Onset Date Resolution Date Notes Provider Name and Address Organization Details Recorded Time Cervical spondylosis without myelopathy 546303966 Active 2023 Emma Pascual MD [address] [place] [address], [phone], [facility] 4 11:31:00 Chronic low back pain 626641492 Active 2023 Emma Pascual MD [address] [place] [address], [phone], [facility] 4 11:31:07 Problem Notes None recorded. Medical Equipment None Reported. Allergies No known drug allergies Medications Name Sig Start Date Stop Date Status Note LastModified by Organization Details LastModified Time atorvastatin 40 mg tablet TAKE ONE TABLET BY MOUTH DAILY active Not Available Not Available Not Available venlafaxine ER 75 mg capsule,exte nded release 24 hr TAKE THREE CAPSULES BY MOUTH DAILY active Not Available Not Available Not Available oxybutynin chloride ER 10 mg tablet,exten ded release 24 hr Take 1 tablet every day by oral route. active Not Available Not Available No t Available tizanidine 4 mg tablet TAKE ONE TABLET BY MOUTH TWICE DAILY active Not Available Not Available No t Available meloxicam 15 mg tablet TAKE ONE TABLET BY MOUTH ONCE DAILY active Not Available Not Available No t Available clopidogrel 75 mg tablet TAKE ONE TABLET BY MOUTH EVERY DAY active Not Available Not Available No t Available sulfamethoxa zole 800 mg-trimethop rim 160 mg tablet Take 1 tablet every 12 hours by oral route for 7 days. active Not Available Not Available Not Available spironolacto ne 25 mg tablet TAKE ONE TABLET BY MOUTH DAILY active Not Available Not Available Not Available carvedilol 3.125 mg tablet take 1 tablet by mouth twice a day must administer with a meal/food active Not Available Not Available No t Available oxycodone-ac etaminophen 10 mg-325 mg tablet take 1 TAB orally four times a day As Needed for pain active Not Available Not Available No t Available gabapentin 800 mg tablet take 1 tablet(800 MG) orally three times a day for Pain active Not Available Not Available No t Available oxybutynin chloride ER 5 mg tablet,exten ded release 24 hr TAKE ONE TABLET BY MOUTH DAILY active Not Available Not Available Not Available Vitamin D2 1,250 mcg (50,000 unit) capsule Take 1 capsule by mouth weekly active Not Available Not Available No t Available losartan 50 mg-hydrochlo rothiazide 12.5 mg tablet TAKE ONE TABLET BY MOUTH DAILY active Not Available Not Available Not Available cholecalcife rol (vitamin D3) 25 mcg (1,000 unit) capsule TAKE ONE CAPSULE BY MOUTH DAILY active Not Available Not Available Not Available Vitals Date Recorded Body temperature Body weight Body mass index (BMI) Body height Respiratory rate Systolic And Diastolic Provider Name and Address Organization Details Last Updated DateTime 4 97.7 [degF] 48366.8 9 g 22.7 kg/m2 170.18 cm 16 /min 150/103 mm[Hg] [facility] 13:25:16 Social History Question Answer Notes LastModified by Organizat ion Details LastModified Time Tobacco Smoking Status Current Every Day Smoker [facility] 08/15/2023 13:27:35 What Is Your Level Of Caffeine Consumption? Moderate 5 Cups A Day Information not available 08/15/2023 Which Illicit Or Recreational Drugs Have You Used? Marijunana About Four Days Ago 08/14/22 [email or web address] Information not available 08/15/2023 What Is Your Relationship Status? [email or web address] Information not available 08/15/2023 At What Age Did You Start Smoking Tobacco? 19 [email or web address] Information not available 08/15/2023 How Much Tobacco Do You Smoke? 1 PPD [email or web address] Information not available 08/15/2023 Sex: Unknown Functional Status Question Answer Note LastModified by Organizat ion Details LastModified Time Do you use any illicit or recreational drugs? Yes [email or web address] Information not available 08/15/2023 Do you or have you ever used any other forms of tobacco or nicotine? No [email or web address] Information not available 08/15/2023 What is your level of alcohol consumption? None [email or web address] Information not available 08/15/2023 Mental Status None recorded. Family History Relationship Description Onset Age of this Age Resolved Age Notes LastModified by Organization Details LastModified Time Father No current problems or disability deceas ed [email or web address] Not available 08/15/2023 13:18:01 Mother No current problems or disability deceas ed [email or web address] Not available 08/15/2023 13:18:04 Medical History Condition Response Quad Stayer N Gynecological HistoryNo gynecological history recorded. Obstetrics History GPAL:G 0 P 0 0 0 0 Past Encounters Encounter ID Performer Location Encounter Start Date Encounter Closed Date Diagnosis/Indication Diagnosis SNOMED-CT Code Diagnosis ICD10 Code Diagnosis IMO Codes Diagnosis Note [id number] Emma Pascual MD [address] [place] [phone] 08/15/2023 12:22:07 08/20/2023 08:31:28 Long-term current use of opiate analgesic drug 4011722224 19236 Z79.891 Diagnostic /Lab: Order Presumptiv e UDT (necessary for rapid results) with Definitive confirmati on for chronic pain patient, to define treatment and reinforce therapeuti c compliance ; the following apply:[Pre sumptive UDT includes: (Amp, Ira, Hung, Bup, THC, SHARLENE, ETOH, Meth, Opi, Oxy )]*-Patien t is receiving controlled medication s.*-Presum ptive UDT to identify presence of illicit/no n-prescrib ed substance( s) - Confirm positive for ongoing safe prescribin g of controlled substances .*-Presump tive UDT to identify presence of licit/pres cribed substance( s)-Confirm unexpected results, identify specific drug(s) in large class and ensure appropriat e use of prescribed medication (s). _*-Definit reinaldo UDT inadequate ly detected by Presumptiv e UDT (gabapenti n, pregabalin , tramadol, fentanyl, tapentadol and carisoprod ol). HP2 (CBC/CMP/G GT) C BC - ordered to monitor the effects of prescribed medication CMP/GGT - ordered to obtain baseline levels for renal and hepatic functions and electrolyt e statusdraw n to monitor the residential effects of current medication . Global Risk Assessment Score:High Risk. High Risk Assessment : Multiple Opioid Medication Medication Regimen (>2 controlled substances ) High Doses of Opioids to Manage Pain (>30 mg Morphine or equivalent ) Abnormal UDMs (including presence of licit/illi cit meds not prescribed Abnormal PC/DS Abnormal PDMP Physical symptoms suggesting substance abuse-misu se at OV's Behavioral /psycholog ical symptoms suggesting substane abuse-misu se at OV's History of legal or illegal substane use including treatments for abuse or dependence Personal History of alcoholism , illicit drug abuse/dive rsion, ALC abuse/phys ical abuse Moderate Risk Assessment : Multiple Pain or Medical Conditions (i.e., back, head and fibromyalg ia) Multiple Physicians treating patients' conditions History of early refills History of previous pain clinics History of legal or illegal substance use by first degree relatives, including treatments for abuse or dependence History/Di agnosis of Mental Health/Psy chiatric illnesses that may impact the patient's treatment with controlled substances History/Di agnosis of Mental Health/Psy chiatric illnesses that may impact the patient's treatment with controlled substances Non [place] resident Difficulty in contacting the patient ( i.e. multiple residences , multiple phone numbers/no phone, frequent out of town travel/out -of-state work) Cervical s pondylosis without myelopathy [id number] M47.812 Chronic low back pain 27 [id number] M54.50 Health Concerns Section Related Observation LastModified by Organization Detai ls LastModified Time None Recorded Concern Status LastModified by Organization Details LastModified Time None Recorded Advance Directives Directive None Recorded Payers Insurance Date Sequence Insurance Name Policy Number Policy Watkins Covered Member ID Watkins Member ID Guarantor Name 08/22/2023 1 [place] [employer] (MEDICARE REPLACEMENT HMO) [id number] Ernestina Silvestre [id number] Ernestina Silvestre Notes Date Note Type Note Provider Name and Address Organization Details Recorded Time 4 text/html PMH: CAD s/p PCI on plavix, HTN, DDD, osteoporosis, COPD, depression, anxiety, current smoker (1.5 PPD), current marijuana use Location: Neck and low backduration: 10-12 yearsinciting event:Radiation: neck pain is axial, lbp radiates to BLEQuality: sharp, shooting, dull, throbbing, tinglingSeverity: 7/10 at worst, 3/10 at best, 5/10 averageAggravating factors: bending, lifting, twisting, prolonged sitting, standingAlleviating factors: rest, medications bowel/bladder changes: none interfering with sleep: yes previous [facility] Previous pain interventions tried: none previous surgeries for pain problem: never been evaluated by a surgeon previous non opioid medications: meloxicam, ibuprofen, tylenol,previous opioid medications:current medications: gabapentin, percocet, effexor, tizanidine, last PT: never had for this problemadjuncts: ice-minimal relief (on feet only) heat-minimal relief ( heating pad) chiropractor- never tried for this pain problemLast A1c: not diabetic disability: yestobacco use: current 1 1/2 ppd smokerillicit substance use: THCprevious arrests: [id number]: :MR CERVICAL SPINE WO CON08/14/2019FINDINGS:The re is normal alignment. The cranial cervical junction has an unremarkable appearance.C2-C3: unremarkable.C3-C4: degenerate disc disease with uncovertebral hypertrophy/small disc osteophyte complex on the left causing mild left lateral recess and moderate left-sided foraminal narrowing.C4-C5: degenerate disc disease with endplate hypertrophic change and bulging disc with bilateral lateral recess and moderate bilateral foraminal narrowing. there is narrowing of the canal at this level at 10mm. the disc does about the cord anteriorly without flattening or displacement.C5-C6: degenerate disc disease with prominent disc osteophyte complex posteriorly and in the right paracentral foraminal area with canal stenosis of 6mm causing some mild impingement and flattening upon the anterior aspect of the cord and severe narrowing of the right lateral recess and neural foramen.C6-C7: asymmetric bulging disc eccentric to the left with left lateral recess and foraminal narrowing.C7-T1: unremarkableT1-T2: unremarkable.IMPRESSION: overall no significant change in the multilevel cervical spondylosis with canal stenosis most severe at C5-C6. multilevel degenerative disc disease with uncovertebral hypertrophy with bulging disc and disc osteophyte complexes as detailed above. please see above for detailed description at each level. overall, the findings are not significantly changed. electronically signed by Pranav Le MD Xr lumbar spine min 4v08/30/21IMPRESSION: degenerative chronic appearing findings. MD Emma Bolivar III, MD [address] [facility], [place], [phone], [facility] 08/16/2023 11:37:24 OBGyn Episode No OBEpisode recorded.
--- OUTSIDE RECORDS SUMMARY | 2025-04-12 13:03 | XMS_ITS | Data Portability ---
Author Organization [place] - [facility] Medicine and [facility] [place] Address [address] [place] [address] Assessment No assessment recorded. Plan of Treatment Reminders Order Date Submit Date Provider Last Modified By Organization Details Last Modified Time Details Appointments None recorded. Lab culture, urine + sensitivity 2022 023 [id number] [facility] ([facility]), [address], [address], 07:03:52 Referral None recorded. Procedures None recorded. Surgeries None recorded. Imaging None recorded. Medication Orders oxybutynin chloride ER 10 mg tablet,exte nded release 24 hr 2022 023 [facility], [address] [place] [address], [id number], 3 14:31:34 Patient TargetsNo targets recorded. Patient InstructionsNo instructions recorded. Reason for Referral None Reported. Results Created Date Observation Date Name Description Value Unit Range Abnormal Flag Note LastModifiedBy Organization Detail LastModifiedTime 10/11/1910/10/2022 CULTU RE URINE results LT 10-11 819 >100, 000 COL/M L Gram Negat donya Rods Not Available [facility] (Lab Registration) [place], [address], 10/11/2022 08:21:31 10/11/19 23 10/10/2022 CULTU RE URINE note Unles s other camara noted testi ng perfo rmed at: [facility] [address] [place] [address] [phone] MD LOLI KwanIA: [id number] Not Available [facility] (Lab Registration) [address] [facility], [place], [address], 10/11/2022 08:21:31 10/11/19 23 10/10/2022 CULTU RE URINE culccur ===== ===== ===== ===== ===== ===== ===== ===== ===== ===== ===== ===== ===== ===== ===== ===== ===== ===== ===== ===== ===== ===== ===== ===== Speci men NO.: [id number] Exam Statu s: Final Proce dure: CULTU RE URINE ===== ===== ===== ===== ===== ===== ===== ===== ===== ===== ===== ===== ===== ===== ===== ===== ===== ===== ===== ===== ===== ===== ===== ===== Iso/R esult : 01 Esche ajay a coli Antim icrob ic/Do se CALLUM Syste callum Urine __ ___ ___ Ampic illin <=8 S S Amp/S ulbac hernandez <=8/4 S S Aztre onam <=4 S S Cefaz lori <=2 S S Cefep shanna <=2 S S Cefot axime <=2 S S Cefox itin <=8 S S Cefta zidim e <=1 S S Ceftr iaxon e <=1 S S Cefur oxime <=4 S S Cipro floxa segundo >2 R R Ertap enem <=0.5 S S Genta micin <=4 S S Levof loxac in >4 R R Merop enem <=1 S S Nitro furan toin <=32 S S Pip/T azo <=16 S S Tetra cycli ne <=4 S S Tobra mycin <=4 S S Trime th/Carson lfa <=2/3 8 S S LT 10-11 819 >100, 000 COL/M L Gram Negat donya Rods Not Available [facility] ([facility] Registration) [address], [place], [address], 10/12/2022 08:24:26 10/11/19 23 10/10/2022 CULTU RE URINE note Unles s other camara noted testi ng perfo rmed at: [facility] [address] [place] [address] [phone] Keenan sandoval MD CLIA: [id number] Not Available [facility] ([facility] Registration) [address], [place], [address], 10/12/2022 08:24:26 Result Notes None recorded. Problems Name Problem SNOMED Code Status Onset Date Resolution Date Notes Provider Name and Address Organization Details Recorded Time Hypertensive disorder 55634573 Active 2022 ALLEGRA Locke - [place] [facility] [place] 3 14:04:03 Arthritis 0641832 Active 2022 ALLEGRA Locke - [place] [facility] [place] 3 14:04:10 Anxiety 23623717 Active 2022 ALLEGRA Locke - [place] [facility] [place] 3 14:04:17 Depressive disorder 70591487 Active 2022 ALLEGRA Locke - [place] [facility] [place] 3 14:04:29 Denture present 646603694 Active 2022 ALLEGRA Locke - [facility] & [place] 3 14:04:36 Problem Notes None recorded. Procedures Surgical History Date Name Laterality Status Provider Name and Address Organization Details Recorded Time Heart Surgery completed Raya Snyder [facility] & [place] 10/10/2022 14:05:15 Imaging Results None recorded. Procedure Notes None recorded. Medical Equipment None Reported. Allergies No known drug allergies Medications Name Sig Start Date Stop Date Status Note LastModified by Organization Details LastModified Time atorvastati n 40 mg tablet TAKE ONE TABLET BY MOUTH DAILY active Not Available Not Available No t Available venlafaxine ER 75 mg capsule,ext ended release 24 hr TAKE THREE CAPSULES BY MOUTH DAILY active Not Available Not Available No t Available oxybutynin chloride ER 10 mg tablet,exte nded release 24 hr Take 1 tablet every day by oral route. active Not Available Not Available No t Available tizanidine 4 mg tablet TAKE ONE TABLET BY MOUTH TWICE DAILY active Not Available Not Available No t Available meloxicam 15 mg tablet TAKE ONE TABLET BY MOUTH DAILY 10/10 completed Not Available Not Available Not Available prednisone 20 mg tablet Take 1 tablet three times daily for 3 days, then take 1 tablet twice daily for 3 days then take 1 tablet daily for 3 days; 10/10 completed Not Available Not Available Not Available alendronate 70 mg tablet TAKE ONE TABLET BY MOUTH WEEKLY active Not Available Not Available No t Available quetiapine 200 mg tablet TAKE ONE TABLET BY MOUTH AT BEDTIME 10/10 completed Not Available Not Available Not Available venlafaxine ER 150 mg capsule,ext ended release 24 hr TAKE ONE CAPSULE EVERY MORNING 10/10 completed Not Available Not Available Not Available clopidogrel 75 mg tablet TAKE ONE TABLET BY MOUTH EVERY DAY active Not Available Not Available No t Available sulfamethox azole 800 mg-trimetho prim 160 mg tablet Take 1 tablet every 12 hours by oral route for 7 days. active Not Available Not Available No t Available aspirin 81 mg tablet,sherie yed release TAKE ONE TABLET BY MOUTH DAILY 10/10 completed Not Available Not Available Not Available spironolact one 25 mg tablet TAKE ONE TABLET BY MOUTH DAILY active Not Available Not Available No t Available carvedilol 3.125 mg tablet take 1 tablet by mouth twice a day must administe r with a meal/food active Not Available Not Available No t Available ketorolac 10 mg tablet take 1 tablet by mouth 3 times daily patient had a shot of toradol in the office 10/10 completed Not Available Not Available Not Available oxycodone-a cetaminophe n 10 mg-325 mg tablet TAKE 1 TAB orally four times a day As Needed for pain active Not Available Not Available No t Available gabapentin 800 mg tablet TAKE 1 TABLET orally three times a day for Pain active Not Available Not Available No t Available oxybutynin chloride ER 5 mg tablet,exte nded release 24 hr TAKE ONE TABLET BY MOUTH DAILY active Not Available Not Available No t Available metoprolol succinate ER 25 mg tablet,exte nded release 24 hr TAKE ONE TABLET BY MOUTH DAILY 10/10 completed Not Available Not Available Not Available ergocalcife rol (vitamin D2) 1,250 mcg (50,000 unit) capsule Take 1 capsule by mouth weekly active Not Available Not Available No t Available albuterol sulfate HFA 90 mcg/actuati on aerosol inhaler use 2 PUFFs every 8 Hours As Needed for shortness of breath or wheezing active Not Available Not Available No t Available losartan 50 mg-hydrochl orothiazide 12.5 mg tablet TAKE ONE TABLET BY MOUTH DAILY active Not Available Not Available No t Available cholecalcif sosa (vitamin D3) 25 mcg (1,000 unit) capsule TAKE ONE CAPSULE BY MOUTH DAILY active Not Available Not Available No t Available Symbicort 80 mcg-4.5 mcg/actuati on HFA aerosol inhaler use 1 INHALATIO N twice daily 10/10 completed Not Available Not Available Not Available diclofenac 1 % topical gel apply 2 Grams TOPICALly 4 times daily apply to single elbow, wrist or hand; for hand includes palm/fing ers/back of hand 10/10 completed Not Available Not Available Not Available Vitals Date Recorded Body height Body mass index (BMI) Body weight Body temperature Provider Name and Address Organization Details Last Updated DateTime 10/10/2022 170.18 cm 22.7 kg/m2 38060.89 g 97.5 [degF] [facility] [place] [facility] [place] 10/10/2022 14:06:51 Social History None recorded. Functional Status Question Answer Note LastModified by Organization D etails LastModified Time What is your level of alcohol consumption? None [email or web address] Information not available 10/10/2022 Mental Status None recorded. Family History Nothing Reported Notes:adopted Medical History No medical history recorded. Gynecological HistoryNo gynecological history recorded. Obstetrics History GPAL:G 0 P 0 0 0 0 Past Encounters Encounter ID Performer Location Encounter Start Date Encounter Closed Date Diagnosis/Indication Diagnosis SNOMED-CT Code Diagnosis ICD10 Code Diagnosis IMO Codes Diagnosis Note [id number] Yogi Edwards Jr, MD [facility] [address] [address] 10/10/2022 13:59:00 10/10/2022 14:29:35 Nocturnal enuresis 4543359 N39.44 patient with nightly episodes of enuresis. We are going to increase her oxybutynin to 10 mg and we discussed restrictio n of fluids 2-3 hours prior to bedtime and sending an alarm to wake up in the middle of the night to void.michael xochilt's urinalysis today was nitrite positive. We will culture and treat if necessary. Health Concerns Section Related Observation LastModified by Organization Detai ls LastModified Time None Recorded Concern Status LastModified by Organization Details LastModified Time None Recorded Advance Directives Directive None Recorded Payers Insurance Date Sequence Insurance Name Policy Number Policy Watkins Covered Member ID Watkins Member ID Guarantor Name 12/21/2023 1 [place] [id number] Ernestina Silvestre [id number] Ernestina Silvestre Notes Date Note Type Note Provider Name and Address Organization Details Recorded Time 10/10/2022 text/html patient is a 66-year-old white female referred for enuresis. Patient states that she is having leakage while she sleeps. She states she is a rather deep sleeper and rarely gets up at night however if she does get up at night she is not have an episode of enuresis during the evening. She denies any daytime leakage. She wears a pad at night. She states that the enuresis has been going on for 2 years. She was placed on oxybutynin 5 mg 2 months ago without improvement. She states that she is retired in her sleep pattern is irregular as far as when she goes to bed when she wakes up. Yogi Edwards Jr, MD [address] [place] [address], [address], [place], [address], [facility] [place] - [place] [facility] [place] 10/10/2022 14:30:23 OBGyn Episode No OBEpisode recorded.
[2025-04-12 15:36] LABS: Alanine Aminotransferase 15 U/L (12-78); Albumin Level 4.3 g/dl (3.5-5.0); Albumin/Globulin Ratio 1.5 (1.1-1.8); Alkaline Phosphatase 95 U/L (38-126); Anion Gap 9.0 mEq/L (5-15); Aspartate Amino Transferase 26 U/L (14-36); Bilirubin,Total 0.5 mg/dl (0.2-1.3); Blood Urea Nitrogen 24 mg/dl (7-17); Calcium 10.1 mg/dl (8.4-10.2); Carbon Dioxide 24 mmol/L (22.0-30.0); Chloride 103 mmol/L (98-107); Creatinine,Serum 1.20 mg/dl (0.52-1.04); Estimated Glomerular Filt Rate 45 ml/min (>60); GFR (African American) 54 ML/MIN (>60); Globulin 2.9 g/dL (1.3-3.2); Glucose 105 mg/dl (74-100); Potassium 5.0 mmoL/L (3.5-5.1); Sodium 131 mmol/L (136-145); Total Protein,Serum 7.2 g/dl (6.3-8.2)
== END 2025-04-12 23:59 | disposition home or self-care (01) ==
LOC: LAB 13:00
PROVIDERS: PCP Internal Medicine; Visit Provider Internal Medicine
DX: N18.32 Chronic kidney disease, stage 3b (principal)
CPT/HCPCS: 36415; 80053